=== PATIENT | male | born 1955 | race Caucasian/White ===

== ENCOUNTER 2017-11-16 09:59 | Inpatient (IN) ==
[2017-11-16] MEDS ORDERED: Ipratropium/Albuterol Neb 3 ML IH ONE (10:08)
[2017-11-16] MEDS ORDERED: methylPREDNISolone 125 MG/2 ML VIAL IVP ONE (10:08)
[2017-11-16] MEDS ORDERED: 0.9 % Sodium Chloride 1,000 ML IVC ONE ×2 (10:11→11:53)
--- NOTE | 2017-11-16 10:17 | Emergency Department Note ---
Disposition Clinical Impression: Acute exacerbation of chronic obstructive airways disease, Bronchitis Disposition: Admitted As Inpatient Condition: Good Referrals: NONE,PCP [Primary Care Provider] - Forms: ED Satisfaction Letter Time of Disposition: 11:12 SOB HPI - General Chief Complaint: ED Shortness of Breath/Dyspnea Stated Complaint: TERRI Time Seen by Provider: 11/16/17 10:03 Source: patient, EMS Mode of arrival: ambulatory Limitations: no limitations Nursing Notes Reviewed: Yes Vital Signs Reviewed: Yes - History of Present Illness Patient is a 62-year-old male with a past medical history COPD, CAD, hyperlipidemia and hypertension who smokes 1 ppd of cigarettes that presents to the ED with chief complaint increased dyspnea 5 days. Patient reports that he has had subjective fever and chills for the past 3 days. States he has been coughing up yellow/green sputum. States similar symptoms before with pneumonia and COPD exacerbation which resulted in admission to the hospital. He denies any chest pain, diaphoresis, weakness, nausea, vomiting, abdominal pain, neck pain/stiffness, sore throat or any other symptoms/complaints. Pt states he has not been using his albuterol or Duoneb at home because he is currently out. Pt Subjective Complaint: shortness of breath Onset (ago): day(s) Severity: none Consistency/Duration: gradually worsening Improves with: nothing Worsens with: nothing Known history of: COPD Associated symptoms: Reports: denies other symptoms, fever, cough, wheezing, sputum production. Denies: chest pain, pain with inspiration, orthopnea, lower extremity pain, polyuria, polydipsia, parasthesias, palpitations, hemoptysis, diaphoresis, nausea/vomiting, syncope, abdominal pain, rash, sense of impending doom Treatment prior to arrival: none Cough present: Yes Cough Description: Voluntary, Productive Cough Frequency: Intermittent Sputum production: Yes Sputum Amount: Small Sputum Color: Yellow, Green - Related Data Home oxygen amount: 3 liters (as needed) Previous Rx's Medication Instructions Recorded Albuterol Sulfate [Albuterol 2 puff IH Q4H PRN 30 Days inh 06/13/15 Inhaler] Carvedilol [Coreg] 3.125 mg PO BIDAC #60 tablet 06/13/15 Clopidogrel [Plavix] 75 mg PO DAILY #30 tablet 06/13/15 Ipratropium/Albuterol Neb [Duoneb] 3 ml IH Q4HR 30 Days inhsol 06/13/15 Lisinopril [Zestril] 5 mg PO DAILY #30 tablet 06/13/15 Omeprazole [PriLOSEC] 20 mg PO DAILY #30 capsule 06/13/15 Simvastatin [Zocor] 40 mg PO HS #30 tablet 06/13/15 Promethazine [Phenergan] 25 mg PO Q6HR PRN #15 tablet 02/08/16 HYDROcodone/Acet 5/325 mg [[place] 1 tab PO Q6H PRN #12 tab 04/25/17 5-325 mg] Allergies Allergy/AdvReac Type Severity Reaction Status Date / Time No Known Allergies Allergy Verified 06/09/15 15:57 All systems ED: reviewed and negative except as stated. Review of Systems: As Per HPI Constitutional: Reports: fever, chills. Denies: weakness, weight change Eyes: Denies: eye pain, eye discharge, vision change ENT ED: Denies: ear pain, throat pain, dental pain, congestion, dysphagia Cardiovascular: Denies: chest pain, palpitations, dyspnea on exertion, orthopnea , edema, syncope, paroxysmal nocturnal dyspnea Respiratory: Reports: cough, dyspnea, wheezes, sputum production. Denies: hemoptysis, stridor Gastrointestinal: Denies: abdominal pain, nausea, vomiting, diarrhea, constipation, hematemesis, melena, hematochezia Genitourinary: Denies: urgency, dysuria, frequency Musculoskeletal: Denies: back pain, neck pain Integumentary: Denies: rash Neurological: Denies: headache, weakness Past Medical History - Past Medical History Source: patient Medical history: Reports: arthritis, COPD, coronary artery disease, GERD, hyperlipidemia, hypertension, myocardial infarction Psychiatric history: Reports: no psych history - Social History Smoking Status: Current every day smoker Smokeless Tobacco Status: No Alcohol use: Reports: none Drug use: Reports: none Physical Exam - General Limitations: no limitations General appearance: alert, in no apparent distress - Head Head exam: atraumatic, normocephalic, normal inspection - Eye Eye exam: Present: normal appearance, PERRL, EOMI. Absent: conjunctival injection - ENT ENT exam: normal exam, normal oropharynx, mucous membranes moist, TM's normal bilaterally - Neck Neck exam: Present: normal inspection, full ROM, trachea midline. Absent: tenderness, meningismus, lymphadenopathy - Chest Chest inspection: Present: normal inspection, symmetric chest wall rise - Respiratory Respiratory exam: Present: wheezes, other (decreased breath sounds, prolonged expiratory phase, rhonchi, wheezes.). Absent: respiratory distress, stridor, accessory muscle use, prolonged expiratory phase - Cardiovascular Cardiovascular exam: Present: normal rhythm, tachycardia, normal heart sounds - Abdominal Exam Abdominal exam: Present: soft, Non-Tender, normal bowel sounds - Extremities Exam Extremities exam: Present: normal inspection. Absent: pedal edema - Expanded Lower Extremity Exam Gait: observed and normal - Back Exam Back exam: Present: normal inspection, full ROM. Absent: tenderness - Neurological Exam Neurological exam: Present: alert, oriented X3 - Psychiatric Psychiatric exam: Present: normal affect, normal mood - Skin Skin exam: Present: warm, dry, intact, normal color. Absent: rash, cyanosis, diaphoresis Course Course Narrative: Patient is a 62-year-old male with a past medical history COPD, CAD, hyperlipidemia and hypertension who smokes 1 ppd of cigarettes that presents to the ED via EMS with chief complaint increased dyspnea 5 days. Patient reports that he has had subjective fever and chills for the past 3 days. States he has been coughing up yellow/green sputum. States similar symptoms before with pneumonia and COPD exacerbation which resulted in admission to the hospital. He denies any chest pain, diaphoresis, weakness, nausea, vomiting, abdominal pain, neck pain/stiffness, sore throat or any other symptoms/complaints. Pt states he has not been using his albuterol or Duoneb at home because he is currently out. Patient is a 62-year-old male. Temp 101.2, HR 120 on arrival. Head normocephalic. No signs of external trauma. Eyes normal inspection. PERRLA. Extraocular movements intact. ENT within normal limits. Airway patent. Neck supple, full range motion, nontender. Heart: sinus tach, lungs diffuse exits or wheezing throughout bilateral lung palm. Decreased air movement , right more pronounced than left. No accessory muscle use or retractions. Abdomen soft, nontender. Normal bowel sounds. Back normal inspection, nontender. Extremities within normal limits. No pedal edema. Neuro no focal neurological deficits noted on exam. Plan to obtain EKG, labs and chest x-ray at this time. Breathing treatments, Solu-Medrol, tylenol and IVF ordered. plan to re-eval. EKG sinus tachycardia with occasional PVCs. Nonspecific ST and T-wave changes. EKG reviewed by Dr. Green and I. CXR Minimal bibasilar atelectasis. WBC 19.7 Influenza A and B neg Based on history and examination I have high suspicious for pneumonia versus acute bacterial bronchitis with accompanied COPD exacerbation. Azithromycin and Rocephin given. On re-eval: 11;15 AM: Mild increase in air movement after breathing treatments and an Solu-Medrol. Plan to admit to medicine for bronchitis and COPD exacerbation. Discussed case with the hospitalist he will accept pt. No other request at this time Dr. Wallace jerome had face to face time with pt and agrees with my assessment and tx plan. - Consultations Consultation #1: hospitalist in ED evaluating patient. Time: 12:33 Vital Signs Temperature 101.2 F H 11/16/17 10:01 Pulse Rate 120 11/16/17 10:01 Respiratory Rate 18 11/16/17 10:01 Blood Pressure 153/104 11/16/17 10:01 O2 Sat by Pulse Oximetry 100 11/16/17 10:01 Temperature 99.6 F 11/16/17 11:41 Pulse Rate 120 11/16/17 11:41 Respiratory Rate 18 11/16/17 11:41 Blood Pressure 119/67 11/16/17 11:41 O2 Sat by Pulse Oximetry 97 11/16/17 11:41 Oxygen Delivery Oxygen Delivery Nasal Cannula Shortness of Breath/Dyspnea - Medical Records Medical records reviewed: Yes I reviewed the patient's medical records. - Lab Data Lab results reviewed: Yes I reviewed the patient's lab results. Result diagrams: 11/16/17 10:19 11/16/17 10:19 Lab Results 11/16/17 11/16/17 11/16/17 Range/Units 10:19 10:19 10:19 WBC 19.7 H (4.3-11.1) K/mcL RBC 5.19 (4.19-5.50) M/mcL Hgb 15.3 (12.9-16.9) g/dL Hct 45.8 (37.5-50.1) % MCV 88.2 (83.0-100.0) fL MCH 29.5 (28.0-33.3) pg MCHC 33.4 (31.6-35.5) g/dL RDW 13.2 (11.5-14.5) % Plt Count 285 (140-400) K/mcL MPV 10.3 (9.4-12.4) fL Immature Gran % 0.5 (0-4) % Seg Neutrophils % 86.8 % Lymphocytes % 5.4 % Monocytes % 6.8 % Eosinophils % 0.1 % Basophils % 0.4 % Neutrophils # 17.1 H (1.6-8.9) K/mcL Lymphocytes # 1.1 (0.6-4.6) K/mcL Monocytes # 1.3 (0.0-1.3) K/mcL Eosinophils # 0.0 (0.0-0.6) K/mcL Basophils # 0.1 (0.0-0.2) K/mcL PT (9.4-12.1) Seconds INR Sodium 136 (136-145) mEq/L Potassium 3.9 (3.5-5.1) mEq/L Chloride 103 (98-107) mEq/L Carbon Dioxide 24 (23-29) mEq/L BUN 17 (8-23) mg/dL Creatinine 1.09 (0.70-1.30) mg/dL Est GFR ( Amer) > 60 (> 60) Est GFR (Non-Af Amer) > 60 (> 60) BUN/Creatinine Ratio 16 (6-26) Glucose 112 H (70-105) mg/dL Calculated Osmolality 284 (280-300) Lactic Acid (0.5-2.2) mmol/L Calcium 9.4 (8.6-10.3) mg/dL Troponin I < 0.03 (< 0.04) ng/mL B-Natriuretic Peptide (Less than 100) pg/mL 11/16/17 11/16/17 11/16/17 Range/Units 10:19 10:19 10:19 WBC (4.3-11.1) K/mcL RBC (4.19-5.50) M/mcL Hgb (12.9-16.9) g/dL Hct (37.5-50.1) % MCV (83.0-100.0) fL MCH (28.0-33.3) pg MCHC (31.6-35.5) g/dL RDW (11.5-14.5) % Plt Count (140-400) K/mcL MPV (9.4-12.4) fL Immature Gran % (0-4) % Seg Neutrophils % % Lymphocytes % % Monocytes % % Eosinophils % % Basophils % % Neutrophils # (1.6-8.9) K/mcL Lymphocytes # (0.6-4.6) K/mcL Monocytes # (0.0-1.3) K/mcL Eosinophils # (0.0-0.6) K/mcL Basophils # (0.0-0.2) K/mcL PT 12.5 H (9.4-12.1) Seconds INR 1.2 Sodium (136-145) mEq/L Potassium (3.5-5.1) mEq/L Chloride (98-107) mEq/L Carbon Dioxide (23-29) mEq/L BUN (8-23) mg/dL Creatinine (0.70-1.30) mg/dL Est GFR ( Amer) (> 60) Est GFR (Non-Af Amer) (> 60) BUN/Creatinine Ratio (6-26) Glucose (70-105) mg/dL Calculated Osmolality (280-300) Lactic Acid 1.4 (0.5-2.2) mmol/L Calcium (8.6-10.3) mg/dL Troponin I (< 0.04) ng/mL B-Natriuretic Peptide 72 (Less than 100) pg/mL - Radiology Data Radiology results reviewed: Yes I reviewed the patient's radiology results. - EKG Data EKG attestation: Yes I reviewed and interpreted this EKG. EKG shows normal: Reports: sinus rhythm Rate: Reports: tachycardia Rhythm: Reports: NSR [place]/QRS: Reports: normal Interpretation: Reports: nonspecific ST-T wave changes
[2017-11-16 10:29] LABS: Basophils # 0.1 K/mcL (0.0-0.2); Basophils % 0.4 %; Eosinophils % 0.1 %; Hematocrit 45.8 % (37.5-50.1); Hemoglobin 15.3 g/dL (12.9-16.9); Immature Granulocytes % 0.5 % (0-4); Lymphocytes # 1.1 K/mcL (0.6-4.6); Lymphocytes % 5.4 %; Mean Corpuscular HGB Conc 33.4 g/dL (31.6-35.5); Mean Corpuscular Hemoglobin 29.5 pg (28.0-33.3); Mean Corpuscular Volume 88.2 fL (83.0-100.0); Mean Platelet Volume 10.3 fL (9.4-12.4); Monocytes # 1.3 K/mcL (0.0-1.3); Monocytes % 6.8 %; Neutrophils # 17.1 K/mcL (1.6-8.9); Platelet Count 285 K/mcL (140-400); Red Blood Count 5.19 M/mcL (4.19-5.50); Red Cell Distribution Width 13.2 % (11.5-14.5); Segmented Neutrophils % 86.8 %
[2017-11-16] MEDS ORDERED: cefTRIAXone 1,000 MG in Water for inj. (sterile) 10 ML IVP ONE ×2 (10:41→12:00)
[2017-11-16] MEDS ORDERED: Azithromycin 250 MG TABLET PO ONE (10:41)
[2017-11-16 10:43] LABS: BUN/Creatinine Ratio 16 (6-26); Blood Urea Nitrogen 17 mg/dL (8-23); Calcium 9.4 mg/dL (8.6-10.3); Carbon Dioxide 24 mEq/L (23-29); Chloride 103 mEq/L (98-107); Glucose 112 mg/dL (70-105); Osmolality,Calculated 284 (280-300); Potassium 3.9 mEq/L (3.5-5.1); Sodium 136 mEq/L (136-145); eGFR For African Americans > 60 (> 60); eGFR For Non-African Americans > 60 (> 60)
[2017-11-16 10:49] LABS: INR 1.2; Prothrombin Time 12.5 Seconds (9.4-12.1)
[2017-11-16] MEDS ORDERED: 0.9 % Sodium Chloride 1,000 ML ONE ×2 (11:21→11:54)
[2017-11-16] MEDS ORDERED: 0.9 % Sodium Chloride 1,000 ML IV SCH (11:30)
[2017-11-16] MEDS ORDERED: cefTRIAXone 1,000 MG in Water for inj. (sterile) 20 ML 20 ML IVP ONE (12:00)
--- NOTE | 2017-11-16 12:19 | Event Note ---
Date of Encounter: 11/16/17 Time of Encounter: 12:18 Patient seen and examined with nurse practitioner. Acute COPD exacerbation with acute bronchitis. He has a fever but no obvious consolidation on chest x- ray. Will give Levaquin for acute bronchitis IV steroids and q4h nebulizer treatment. He still smokes one pack a day. Inpatient admission.
[2017-11-16] MEDS ORDERED: Acetaminophen 325 MG TABLET PO PRN (12:40)
[2017-11-16] MEDS ORDERED: Naloxone 0.4 MG/ML INJ IVP PRN (12:40)
[2017-11-16] MEDS ORDERED: Ondansetron 4 MG/2 ML VIAL IVP PRN (12:40)
[2017-11-16] MEDS ORDERED: Albuterol 2.5 MG/3 ML NEBULIZER IH PRN (12:44)
[2017-11-16] MEDS ORDERED: Azithromycin 500 MG in D5% in Water 250 ML IVPB SCH (13:00)
--- NOTE | 2017-11-16 13:01 | Internal Med History&Physical ---
Date of Encounter: 11/16/17 Time of Encounter: 12:58 Assessment and Plan (1) Sepsis Current visit: Yes Status: Acute Patient presents tachycardic, febrile temp of 101.2 elevated white count 19.7 source pneumonia blood cultures have been obtained patient has received 3 L of IV fluid in the ER we will continue with IV fluids Initiated on Rocephin and azithromycin will continue with Levaquin Qualifiers: Sepsis type: sepsis due to unspecified organism Qualified Code(s): A41.9 - Sepsis, unspecified organism (2) Acute bacterial bronchitis Current visit: No Status: Acute Patient has been experiencing cough with yellow sputum subjective fevers wheezing shortness of breath. Chest x-ray is clear this time. He was febrile on presentation and tachycardic. Blood cultures have been drawn patient given Rocephin and azithromycin in the ER. We will give Levaquin and Zosyn Bronchodilators We will recheck chest x-ray in the a.m. possible pneumonia (3) Acute on chronic respiratory failure with hypoxemia Current visit: Yes Status: Acute Patient has exacerbation of COPD as well as acute bacterial bronchitis. We will continue with oxygen titrated to maintain SPO2 greater than 90% (4) Tobacco abuse Current visit: No Status: Chronic Encouraged patient to stop smoking nicotine patch (5) Acute exacerbation of chronic obstructive airways disease Current visit: Yes Status: Acute Patient has been expressing increasing shortness of breath over the past 5 days as well as wheezing cough. Presently has scattered wheezes throughout lung palm we will continue with oxygen titrated to maintain SPO2 over 92% We will place on steroids to taper Bronchodilators (6) DVT prophylaxis Current visit: Yes Status: Acute Lovenox subcutaneous Internal Medicine - H&P: HPI Chief complaint: SOB Admitted From: Emergency Dept Plans for Post Hospital Care: Home History of present illness: Mr. Stubbs is a 62 year old male past medical history of COPD oxygen dependent hyperlipidemia hypertension CAD, LA with stent placement. Patient has been experiencing gradually worsening shortness of breath and wheezing as well as productive cough with yellow sputum over the past 5 days. For the past 3 days he has had fevers chills generalized malaise, he normally smokes about 1 pack a day however he has been too short of breath to smoke. He is to wear oxygen continuously 3 L nasal cannula however he does admit that he he only wears it as needed but over the past few days he has required 24 hours oxygen. He has been out of his albuterol. He presented to the ER with fever and tachycardia he was hypoxic on room air. Lab work did reveal leukocytosis lactate was normal chest x-ray per radiology was negative for any focal consolidation flu swab was negative. He did meet sepsis criteria and fluids were initiated blood cultures obtained is initiated on azithromycin and Rocephin. He also received duo nebs and steroids. According to records he continued to display increased work of breathing although no drop in O2 he was placed on BiPAP. Presently patient does appear to be in some mild respiratory distress with conversational dyspnea and utilization of accessory muscles. He is hemodynamically stable at this time he denies any chest pain. I did speak with patient concerning CODE STATUS he wants to be a DNR CCA DNI I did review his case with Dr. Herrmann who agrees with plan Past Med Surg Social Fam HX - Past Medical History Medical history: arthritis, COPD, coronary artery disease, GERD, hyperlipidemia , hypertension, myocardial infarction Psychiatric history: no psych history - Social History Smoking Status: Current every day smoker Smokeless Tobacco Status: No Alcohol use: none Drug use: none - Family History Father Living Status: Mother Living Status: Hx Family Cardiac Disorders: Yes (mother) Hx Family Respiratory Disorders: Yes (most all) Hx Family Cancer: Yes (most, lung ca) Hx Family GI Disorders: No Hx Family Endocrine Disorder: Yes (grandmother) Hx Family Neuromuscular Disorders: No Hx Family Neurologic Disorders: Yes (aunt) Hx Family HEENT Disorders: No Hx Family Autoimmune Disorders: No Internal Medicine - H&P: Meds Albuterol Sulfate [Albuterol Inhaler] 2 puff IH Q4H PRN 30 Days inh 06/13/15 [ Rx] Carvedilol [Coreg] 3.125 mg PO BIDAC #60 tablet 06/13/15 [Rx] Clopidogrel [Plavix] 75 mg PO DAILY #30 tablet 06/13/15 [Rx] Ipratropium/Albuterol Neb [Duoneb] 3 ml IH Q4HR 30 Days inhsol 06/13/15 [Rx] Lisinopril [Zestril] 5 mg PO DAILY #30 tablet 06/13/15 [Rx] Omeprazole [PriLOSEC] 20 mg PO DAILY #30 capsule 08/04/15 [Rx] Simvastatin [Zocor] 40 mg PO HS #30 tablet 06/13/15 [Rx] Promethazine [Phenergan] 25 mg PO Q6HR PRN #15 tablet 02/08/16 [Rx] HYDROcodone/Acet 5/325 mg [[place] 5-325 mg] 1 tab PO Q6H PRN #12 tab 04/25/17 [Rx ] 3 Allergy/AdvReac Type Severity Reaction Status Date / Time No Known Allergies Allergy Verified 06/09/15 15:57 All Systems PM: A 10-system review of systems was performed and is negative for pertinent findings except as documented above in the HPI. - Constitutional Constitutional: fatigue, no chills, no fever(s), no night sweats - EENT Eyes: no change in vision, no discharge, no pain, no photophobia Nose, mouth and throat: no dysphagia, no nasal discharge, no neck pain, no sore throat - Cardiovascular Cardiovascular ROS IM: dyspnea, dyspnea on exertion, no chest pain, no diaphoresis, no lightheadedness, no palpitations, no syncope - Respiratory Respiratory: cough, wheezing, chest congestion, excessive phlegm production, change in phlegm color, no dyspnea - Gastrointestinal Gastrointestinal: no abdominal pain, no diarrhea, no hematemesis, no hematochezia, no melena, no nausea, no vomiting - Musculoskeletal Musculoskeletal ROS IM: no numbness, no tingling - Neurological Neurological ROS: no confusion, no convulsions, no focal weakness, no numbness, no tingling, no tremor(s) - Hematologic/Lymphatic Hematologic/Lymphatic: no easy bruising - Constitutional Vitals: Temp Pulse Resp BP Pulse Ox 99.6 F 120 24 132/107 97 11/16/17 11:41 11/16/17 11:41 11/16/17 12:41 11/16/17 12:41 11/16/17 11:41 General appearance: Present: mild distress, A&O X 3 - Head Head exam: Present: atraumatic, normocephalic - Eye Eye exam: Present: PERRL, conjuntiva pink, sclera anicteric Pupils: Present: PERRL - Neck Neck exam general surgery: Present: supple, trachea midline. Absent: lymphadenopathy - Respiratory Respiratory exam: Present: wheezes. Absent: accessory muscle use, rales, rhonchi - Cardiovascular Cardiovascular exam: Present: RRR, +S1, +S2. Absent: diastolic murmur, gallop, rubs, systolic murmur - GI/Abdominal GI/Abdominal exam: Present: normal bowel sounds, soft, no peritoneal signs. Absent: distended, tenderness - Extremities Exam Extremities exam: Present: warm, radial pulses palpable and symmetrical. Absent : calf tenderness, cyanotic, pedal edema - Neurological Exam Neurological exam: Present: CN II-XII intact, oriented X3, no focal deficits. Absent: pronater drift, facial droop, speech deficit - Skin Skin exam: Present: dry, intact Internal Med - H&P Results - Labs CBC & Chem 7: 11/16/17 10:19 11/16/17 10:19 - EKG Data EKG shows normal: sinus rhythm - Diagnostic Studies Other Images Additional comments: Chest X-Ray 11/16/17 10:09 IMPRESSION: Minimal bibasilar atelectasis D/ / Jason Trinh MD / Jason Trinh MD Interpreting Provider: Jason Trinh MD
[2017-11-16] MEDS ORDERED: *HR* HYDROcodone/Acet 5/325 mg TABLET PO PRN (13:41)
[2017-11-16 13:54] LABS: ABG Base Excess -6 mEq/L (-2 to 3); ABG HCO3 20 mEq/L (21-27); ABG Oxygen Saturation 95 % (95-98); ABG PCO2 37 mmHg (35-45); ABG PH 7.33 pH Units (7.32-7.45); ABG PO2 78 mmHg (85-104); ABG TCO2 21 mEq/L (20-26); Blood Gas FiO2 0.5 (1-15=lpm or21-100=%)
[2017-11-16] MEDS: Nicotine 14 MG PATCH.TD24 TD SCH (15:17)
[2017-11-16] MEDS: 0.9 % Sodium Chloride 1,000 ML IVC SCH (15:17)
[2017-11-16] MEDS: Ipratropium/Albuterol Neb 3 ML IH SCH ×3 (15:57→23:39)
[2017-11-16] MEDS ORDERED: Benzonatate 100 MG CAPSULE PO PRN (16:04)
[2017-11-16] MEDS: Piperacillin/Tazobactam 3.375 GM/200 ML BAG IVPB SCH (17:11)
[2017-11-16] MEDS: methylPREDNISolone 125 MG/2 ML VIAL IVP SCH (17:11)
[2017-11-17] MEDS: Piperacillin/Tazobactam 3.375 GM/200 ML BAG IVPB SCH ×3 (00:54→18:05)
[2017-11-17] MEDS: methylPREDNISolone 125 MG/2 ML VIAL IVP SCH ×5 (00:54→23:48)
[2017-11-17] MEDS: 0.9 % Sodium Chloride 1,000 ML IVC SCH (00:58)
[2017-11-17] MEDS: Ipratropium/Albuterol Neb 3 ML IH SCH ×6 (03:57→23:37)
[2017-11-17 06:31] LABS: Basophils % 0.2 %; Immature Granulocytes % 1.6 % (0-4); Lymphocytes # 0.8 K/mcL (0.6-4.6); Lymphocytes % 3.9 %; Mean Corpuscular HGB Conc 32.7 g/dL (31.6-35.5); Mean Corpuscular Hemoglobin 29.4 pg (28.0-33.3); Mean Corpuscular Volume 89.9 fL (83.0-100.0); Mean Platelet Volume 10.4 fL (9.4-12.4); Monocytes # 0.5 K/mcL (0.0-1.3); Monocytes % 2.5 %; Neutrophils # 17.7 K/mcL (1.6-8.9); Platelet Count 238 K/mcL (140-400); Red Blood Count 3.67 M/mcL (4.19-5.50); Red Cell Distribution Width 13.5 % (11.5-14.5); Segmented Neutrophils % 91.8 %
[2017-11-17 06:32] LABS: Hemoglobin 10.8 g/dL (12.9-16.9)
[2017-11-17] MEDS: *HR* Enoxaparin 40 MG/0.4 ML SYRINGE SQ SCH (06:33)
[2017-11-17 06:40] LABS: BUN/Creatinine Ratio 18 (6-26); Blood Urea Nitrogen 19 mg/dL (8-23); Calcium 7.9 mg/dL (8.6-10.3); Carbon Dioxide 21 mEq/L (23-29); Chloride 112 mEq/L (98-107); Glucose 150 mg/dL (70-105); Osmolality,Calculated 289 (280-300); Potassium 3.5 mEq/L (3.5-5.1); Sodium 137 mEq/L (136-145); eGFR For African Americans > 60 (> 60); eGFR For Non-African Americans > 60 (> 60)
[2017-11-17] MEDS ORDERED: cefTRIAXone 1,000 MG in Water for inj. (sterile) 20 ML 10 ML IVP SCH (09:00)
[2017-11-17] MEDS: Levofloxacin 750 MG/150 ML 750 MG/150 ML BAG IVPB SCH (09:12)
[2017-11-17] MEDS: Nicotine 14 MG PATCH.TD24 TD SCH (09:13)
--- NOTE | 2017-11-17 10:28 | Electrocardiograph Report ---
[address] [address] Test Date: 2017-11-16 Pat Name: Jose C Stubbs Department: 102 Room: 3B16 Gender: M [employer]contracts Manager: : [id number] Requested By: Keren Mares Order Number: [id number] Reading MD: Bharat Strauss MD Measurements Intervals [place] Rate: 129 P: 67 WI: 120 QRS: 103 QRSD: 103 T: 44 QT: 312 QTc: 388 Interpretive Statements SINUS TACHYCARDIA WITH FREQUENT VENTRICULAR PREMATURE COMPLEXES MARKED RIGHT AXIS DEVIATION Electronically Signed On 11-17-2017 10:27:32 EST by Bharat Strauss MD
--- NOTE | 2017-11-17 18:26 | Internal Med Progress Note ---
Date of Encounter: 11/17/17 Time of Encounter: 11:00 - Assessment and plan (1) COPD exacerbation Current Visit: No Status: Acute Assessment and plan: -We will continue dual nebs and IV Solu-Medrol (2) Acute bacterial bronchitis Current Visit: No Status: Acute Assessment and plan: Will continue IV Levaquin and IV Zosyn (3) DVT prophylaxis Current Visit: Yes Status: Acute Assessment and plan: Continue Lovenox - Subjective Interval history: Patient still with leukocytosis although no longer afebrile after starting treatment for bacterial bronchitis with COPD exacerbation - Constitutional Vitals: Temp Pulse Resp BP Pulse Ox 98.1 F 77 16 113/49 97 11/17/17 14:47 11/17/17 14:47 11/17/17 17:05 11/17/17 14:47 11/17/17 17:05 General appearance: Present: mild distress, A&O X 3 - Respiratory Respiratory exam: Present: CTAB. Absent: accessory muscle use, rales, rhonchi, wheezes - Cardiovascular Cardiovascular exam: Present: RRR, +S1, +S2. Absent: diastolic murmur, gallop, rubs, systolic murmur Internal Medicine: Result - Labs CBC & Chem 7: 11/17/17 06:08 11/17/17 06:08 Labs: Short CBC 11/17/17 Range/Units 06:08 WBC 19.3 H (4.3-11.1) K/mcL Hgb 10.8 L D (12.9-16.9) g/dL Hct 33.0 L (37.5-50.1) % Plt Count 238 (140-400) K/mcL Neutrophils # 17.7 H (1.6-8.9) K/mcL BMP 11/17/17 06:08 Sodium 137 Potassium 3.5 Chloride 112 H Carbon Dioxide 21 L BUN 19 Creatinine 1.03 Glucose 150 H Calcium 7.9 L Cardiac Enzymes 11/16/17 Range/Units 22:14 Troponin I < 0.03 (< 0.04) ng/mL - ABG Interpretation ABG results: ABG ABG pH 7.33 pH Units (7.32-7.45) 11/16/17 13:49 ABG pCO2 37 mmHg (35-45) 11/16/17 13:49 ABG pO2 78 mmHg (85-104) L 11/16/17 13:49 ABG O2 Saturation 95 % (95-98) 11/16/17 13:49 PT/INR, D-dimer PT 12.5 Seconds (9.4-12.1) H 11/16/17 10:19 Consult Discharge Plan - Plan Referrals: NONE,PCP [Primary Care Provider] -
[2017-11-18] MEDS: Piperacillin/Tazobactam 3.375 GM/200 ML BAG IVPB SCH ×3 (01:51→17:04)
[2017-11-18] MEDS: Ipratropium/Albuterol Neb 3 ML IH SCH ×6 (03:32→23:49)
[2017-11-18] MEDS: methylPREDNISolone 125 MG/2 ML VIAL IVP SCH ×3 (05:42→17:05)
[2017-11-18] MEDS: *HR* Enoxaparin 40 MG/0.4 ML SYRINGE SQ SCH ×2 (05:42→21:20)
[2017-11-18] MEDS: Levofloxacin 750 MG/150 ML 750 MG/150 ML BAG IVPB SCH (09:57)
[2017-11-18] MEDS: Nicotine 14 MG PATCH.TD24 TD SCH (09:58)
--- NOTE | 2017-11-18 17:33 | Internal Med Progress Note ---
Date of Encounter: 11/18/17 Time of Encounter: 10:30 - Assessment and plan (1) COPD exacerbation Current Visit: Yes Status: Acute Assessment and plan: continue bronchodilators. We will begin to taper steroids as patient is clinically improving. Moderate risk for complications. (2) Acute bacterial bronchitis Current Visit: Yes Status: Acute Assessment and plan: Cultures have been negative. We will de-escalate antibiotics. Continue Levaquin. Stop Zosyn. (3) Sepsis Current Visit: Yes Status: Resolved Assessment and plan: Likely due to acute bacterial bronchitis. No organism identified. Will complete empiric therapy with Levaquin. Qualifiers: Sepsis type: sepsis due to unspecified organism Qualified Code(s): A41.9 - Sepsis, unspecified organism (4) Acute on chronic respiratory failure with hypoxemia Current Visit: Yes Status: Acute Assessment and plan: Patient with acute on chronic hypoxia. Currently on 2 L O2 supplementation. We will evaluate for home oxygen use during daytime prior to discharge. Patient currently has nocturnal oxygen at home. (5) DVT prophylaxis Current Visit: Yes Status: Acute Assessment and plan: With Lovenox - Subjective Interval history: Patient is awake and alert. Continues to feel better. Denies any fever or chest pain. Shortness of breath is improving. Still describes some wheezing and dyspnea on exertion. Also requiring O2 supplementation during the day. - Constitutional Vitals: Temp Pulse Resp BP Pulse Ox 98.2 F 71 16 121/61 98 11/18/17 16:26 11/18/17 16:26 11/18/17 17:25 11/18/17 16:26 11/18/17 17:25 General appearance: Present: mild distress, A&O X 3, answers questions appropriately - Respiratory Respiratory exam: Present: prolonged expiratory phase, wheezes. Absent: accessory muscle use, rales, rhonchi - Cardiovascular Cardiovascular exam: Present: RRR, +S1, +S2. Absent: diastolic murmur, gallop, rubs, systolic murmur - GI/Abdominal GI/Abdominal exam: Present: normal bowel sounds, soft, no peritoneal signs. Absent: distended, tenderness - Extremities Exam Extremities exam: Present: warm, radial pulses palpable and symmetrical. Absent : calf tenderness, cyanotic, pedal edema - Neurological Exam Neurological exam: Present: alert, oriented X3, no focal deficits. Absent: facial droop, speech deficit Internal Medicine: Result - Labs CBC & Chem 7: 11/17/17 06:08 11/17/17 06:08 - ABG Interpretation ABG results: ABG ABG pH 7.33 pH Units (7.32-7.45) 11/16/17 13:49 ABG pCO2 37 mmHg (35-45) 11/16/17 13:49 ABG pO2 78 mmHg (85-104) L 11/16/17 13:49 ABG O2 Saturation 95 % (95-98) 11/16/17 13:49 PT/INR, D-dimer PT 12.5 Seconds (9.4-12.1) H 11/16/17 10:19 Consult Discharge Plan - Plan Referrals: NONE,PCP [Primary Care Provider] -
[2017-11-19] MEDS: Ipratropium/Albuterol Neb 3 ML IH SCH ×3 (03:46→12:00)
[2017-11-19 07:26] VITALS: BP 129/71
[2017-11-19] MEDS ORDERED: predniSONE 20 MG TABLET PO SCH (09:00)
[2017-11-19] MEDS ORDERED: levoFLOXacin 500 MG TABLET PO SCH (09:00)
[2017-11-19] MEDS: Nicotine 14 MG PATCH.TD24 TD SCH (09:43)
--- NOTE | 2017-11-19 09:55 | Discharge Summary ---
Date of Encounter: 11/19/17 Time of Encounter: 09:45 - Discharge Diagnosis (1) COPD exacerbation Priority: Primary Status: Acute (2) Acute bacterial bronchitis Priority: Secondary Status: Acute (3) Sepsis Priority: Secondary Status: Resolved Qualifiers: Sepsis type: sepsis due to unspecified organism Qualified Code(s): A41.9 - Sepsis, unspecified organism (4) Acute on chronic respiratory failure with hypoxemia Priority: Secondary Status: Acute (5) DVT prophylaxis Priority: Secondary Status: Acute - Discharge Medications Prescriptions: Albuterol Sulfate [Albuterol Inhaler] 2 puff IH Q4HR PRN #1 hfa.aer.ad PRN Reason: Shortness Of Breath Acetaminophen [Tylenol] 650 mg PO Q6HR PRN #30 tablet PRN Reason: Mild Pain (1-3) Albuterol Neb [Proventil Neb] 2.5 mg IH Q4H PRN #30 inhsol PRN Reason: Shortness Of Breath/Wheezing Budesonide/Formoterol 80/4.5 [Symbicort 80/4.5] 2 puff IH BID #1 hfa.aer.ad Carvedilol [Coreg] 3.125 mg PO BIDAC #60 tablet Clopidogrel [Plavix] 75 mg PO DAILY #30 tablet levoFLOXacin [Levaquin] 500 mg PO DAILY #5 tablet Lisinopril [Zestril] 5 mg PO DAILY #30 tablet predniSONE [PredniSONE] 10 mg PO DAILY 12 Days tablet Simvastatin [Zocor] 40 mg PO HS #30 tablet Home Medications: Lisinopril [Zestril] 5 mg PO DAILY #30 tablet 06/13/15 [Rx] Acetaminophen [Tylenol] 650 mg PO Q6HR PRN #30 tablet 11/19/17 [Rx] Albuterol Neb [Proventil Neb] 2.5 mg IH Q4H PRN #30 inhsol 11/19/17 [Rx] Albuterol Sulfate [Albuterol Inhaler] 2 puff IH Q4HR PRN #1 hfa.aer.ad 11/19/17 [Rx] Budesonide/Formoterol 80/4.5 [Symbicort 80/4.5] 2 puff IH BID #1 hfa.aer.ad 08/27 [Rx] Carvedilol [Coreg] 3.125 mg PO BIDAC #60 tablet 11/19/17 [Rx] Clopidogrel [Plavix] 75 mg PO DAILY #30 tablet 11/19/17 [Rx] Lisinopril [Zestril] 5 mg PO DAILY #30 tablet 11/19/17 [Rx] Simvastatin [Zocor] 40 mg PO HS #30 tablet 11/19/17 [Rx] levoFLOXacin [Levaquin] 500 mg PO DAILY #5 tablet 11/19/17 [Rx] predniSONE [PredniSONE] 10 mg PO DAILY 12 Days tablet 11/19/17 [Rx] Allergies/Adverse Reactions: 3 Allergy/AdvReac Type Severity Reaction Status Date / Time No Known Allergies Allergy Verified 06/09/15 15:57 Date of admission: 11/16/17 12:40 Primary care physician: PCP NONE Consults: 11/16/17 14:32 Consult to Toe Former [CONS] Routine Reason for SW Consult: oxygen use Discharging clinician: Giovanni Song Anticipated date of discharge: 11/19/17 - Patient Status Disposition: Home, Self-Care Condition: Good Functional capacity at discharge: independent ambulation Overall status at discharge: patient is progressing back to baseline - Discharge Instructions Instructions: Acute Respiratory Distress Syndrome (DC), Chronic Obstructive Pulmonary Disease (DC) Follow Up With: Naun Zapata MD [Partnered Physician] - (in 1-2 weeks for COPD) NONE,PCP [Primary Care Provider] - (in 1-2 weeks for follow up) - Diet and Activity Activity: as per physical therapy, wear oxygen at all times Diet: low fat, low cholesterol, low salt diet Hospital course: Mr. Stubbs is a 62 year old male sent with a history of COPD, tobacco abuse was hospitalized here with sepsis related to acute bronchitis. He had presented to the ER with complaints of shortness of breath. He had fever and an elevated WBC count. We will start her on IV antibiotics along with intravenous steroids and bronchodilators and O2 supplementation. His symptoms have slowly improved with this treatment regimen. Presently he is breathing well on room air. He was evaluated for home oxygen but did not qualify for it. She is clinically stable for discharge home. He will be discharged on oral antibiotics and steroid taper to complete treatment for COPD. He will also be discharged with prescriptions for nebulizers and inhalers along with prescriptions for his usual medications that he normally takes. - Time Spent with Patient Total time spent providing and/or coordinating discharge services: Greater than 30 minutes (35 min) - Constitutional Vitals: Temp Pulse Resp BP Pulse Ox 97.6 F 69 16 129/71 90 11/19/17 07:24 11/19/17 07:24 11/19/17 07:24 11/19/17 07:24 11/19/17 07:24 General appearance: Present: cooperative, mild distress, A&O X 3, answers questions appropriately - Respiratory Respiratory exam: Present: prolonged expiratory phase. Absent: accessory muscle use, rales, rhonchi, wheezes - Cardiovascular Cardiovascular exam: Present: RRR, +S1, +S2. Absent: diastolic murmur, gallop, rubs, systolic murmur - GI/Abdominal GI/Abdominal exam: Present: normal bowel sounds, soft, no peritoneal signs. Absent: distended, tenderness - Extremities Exam Extremities exam: Present: warm, radial pulses palpable and symmetrical. Absent : calf tenderness, cyanotic, pedal edema - Neurological Exam Neurological exam: Present: CN II-XII intact, oriented X3, no focal deficits. Absent: facial droop, speech deficit
== END 2017-11-19 14:15 | disposition home or self-care (01) | DRG 871 ==
LOC: 3ANU 09:59 → EMEROO 09:59 → 3BNU 12:31 → SUATTDRO 12:40 → 3BNU 12:49
PROVIDERS: ADMIT Hospitalist; ATTEND Internal Medicine

== ENCOUNTER 2018-05-05 19:44 | Inpatient (IN) ==
--- NOTE | 2018-05-05 20:02 | Emergency Department Note ---
Disposition Clinical Impression: COPD exacerbation, Tobacco abuse, History of coronary artery disease, History of hypertension, History of hypercholesterolemia, On anticoagulant therapy, Smoker Disposition: Admitted As Inpatient Referrals: Quinton Avila MD [Primary Care Provider] - Forms: ED Satisfaction Letter General Adult HPI - General Chief complaint: ED Shortness of Breath/Dyspnea Stated complaint: TERRI Time Seen by Provider: 05/05/18 19:56 Source: patient Limitations: no limitations - History of Present Illness HPI Narrative: 62-year-old male with a history of COPD reports emergency department complaining of shortness of breath and wheezing he has been coughing and states he has had a fever. No coughing of blood leg swelling or pain no syncope. No previous history of DVT. The patient reports he is anticoagulated on Xarelto secondary to coronary artery disease there is no history of bleeding. No trauma. No abdominal pain vomiting or diarrhea and no acute back pain or syncope. The patient denies any history of aneurysms. The patient does not describe chest pain. There is no history of confusion or any difficulty moving the arms or legs independently. The patient states he is "supposed to wear oxygen" but does not. Pain Scale: 0 - Related Data Home Medications Medication Instructions Recorded Confirmed No Known Home Drugs 05/05/18 05/05/18 Allergies Allergy/AdvReac Type Severity Reaction Status Date / Time No Known Allergies Allergy Verified 05/05/18 19:45 All systems ED: reviewed and negative except as stated. Past Medical History - Past Medical History Medical history: Reports: arthritis, COPD, coronary artery disease, GERD, hyperlipidemia, hypertension, myocardial infarction Psychiatric history: Reports: no psych history - Social History Smoking Status: Current every day smoker Smokeless Tobacco Status: No Alcohol use: Reports: none Drug use: Reports: none Physical Exam - General Limitations: no limitations General appearance: alert, in no apparent distress - Head Head exam: atraumatic, normocephalic, normal inspection - Eye Eye exam: Present: normal appearance - ENT ENT exam: normal exam, normal oropharynx, mucous membranes moist, TM's normal bilaterally, normal external ear exam - Neck Neck exam: Present: normal inspection, full ROM, trachea midline - Chest Chest inspection: Present: symmetric chest wall rise. Absent: tenderness - Respiratory Respiratory exam: Present: wheezes, prolonged expiratory phase. Absent: respiratory distress, stridor, accessory muscle use - Cardiovascular Cardiovascular exam: Present: regular rate, normal rhythm, normal heart sounds - Abdominal Exam Abdominal exam: Present: soft, Non-Tender, normal bowel sounds. Absent: tenderness, distention, guarding, rebound, rigidity, pulsatile mass - Extremities Exam Extremities exam: Present: normal inspection, full ROM, normal capillary refill. Absent: tenderness, pedal edema, joint swelling, calf tenderness - Expanded Lower Extremity Exam Lower leg exam: Absent: Homans' sign Neurovascular/Tendon exam: Present: normal capillary refill. Absent: motor deficit, sensory deficit, tendon deficit, extremity cold to touch, pallor - Back Exam Back exam: Present: normal inspection, full ROM. Absent: tenderness, CVA tenderness (R), CVA tenderness (L), vertebral tenderness - Neurological Exam Neurological exam: Present: alert, oriented X3, CN II-XII intact. Absent: motor sensory deficit - Psychiatric Psychiatric exam: Present: normal affect, normal mood - Skin Skin exam: Present: warm, dry, intact, normal color. Absent: rash, cyanosis, diaphoresis, erythema, pallor, mottled Course Vital Signs Temperature 98.1 F 05/05/18 19:45 Pulse Rate 71 05/05/18 19:45 Respiratory Rate 24 05/05/18 19:45 Blood Pressure 175/97 05/05/18 19:45 O2 Sat by Pulse Oximetry 93 05/05/18 19:45 Temperature 98.1 F 05/05/18 19:45 Pulse Rate 102 05/05/18 22:15 Respiratory Rate 19 05/05/18 22:30 Blood Pressure 112/77 05/05/18 22:30 O2 Sat by Pulse Oximetry 97 05/05/18 22:30 Oxygen Delivery Oxygen Delivery Nasal Cannula Medical Decision Making - [facility] Narrative Medical decision making narrative: The patient was given multiple nebulizer treatments in the ED as well as Solu- Medrol. He was observed in the emergency department and had persistent wheezing with poor air flow throughout all lung palm. His family members report that they do not think he can go home, they feel he is too ill. The patient reports he is still significantly short of breath after treatment. Based on what appears to be failed outpatient therapy, persistent wheezing after 3 nebulizer treatments, poor peak flow, elderly state, continual smoking, known COPD, persistent tachypnea, a history of coronary artery disease and other comorbidities, I thought it would be appropriate to admit the patient to the hospital. Oxygen was supplied in the emergency department. I consulted with the hospitalist on-call who has accepted the patient to their care. - Lab Data Lab results reviewed: Yes I reviewed the patient's lab results. Result diagrams: 05/05/18 20:25 05/05/18 20:25 Lab Results 05/05/18 05/05/18 05/05/18 Range/Units 20:25 20:25 20:25 WBC 9.1 (4.3-11.1) K/mcL RBC 5.14 (4.19-5.50) M/mcL Hgb 15.1 (12.9-16.9) g/dL Hct 44.9 (37.5-50.1) % MCV 87.4 (83.0-100.0) fL MCH 29.4 (28.0-33.3) pg MCHC 33.6 (31.6-35.5) g/dL RDW 13.3 (11.5-14.5) % Plt Count 325 (140-400) K/mcL MPV 9.8 (9.4-12.4) fL Immature Gran % 0.3 (0-4) % Seg Neutrophils % 66.8 % Lymphocytes % 22.0 % Monocytes % 6.8 % Eosinophils % 3.4 % Basophils % 0.7 % Neutrophils # 6.1 (1.6-8.9) K/mcL Lymphocytes # 2.0 (0.6-4.6) K/mcL Monocytes # 0.6 (0.0-1.3) K/mcL Eosinophils # 0.3 (0.0-0.6) K/mcL Basophils # 0.1 (0.0-0.2) K/mcL PT 11.2 (9.4-12.1) Seconds INR 1.0 APTT 32.0 (26.0-36.0) Seconds Sodium 137 (136-145) mEq/L Potassium 4.3 (3.5-5.1) mEq/L Chloride 106 (98-107) mEq/L Carbon Dioxide 25 (23-29) mEq/L BUN 10 (8-23) mg/dL Creatinine 0.94 (0.70-1.30) mg/dL Est GFR ( Amer) > 60 (> 60) Est GFR (Non-Af Amer) > 60 (> 60) BUN/Creatinine Ratio 11 (6-26) Glucose 95 (70-105) mg/dL Calculated Osmolality 283 (280-300) Lactic Acid (0.5-2.2) mmol/L Calcium 9.3 (8.6-10.3) mg/dL Total Bilirubin 0.3 (0.3-1.0) mg/dL Direct Bilirubin 0.1 (0.0-0.2) mg/dL Indirect Bilirubin 0.2 (0.0-1.2) mg/dL AST 19 (13-39) Units/L ALT 11 (7-52) Units/L Alkaline Phosphatase 76 (34-104) Units/L Troponin I < 0.03 (< 0.04) ng/mL B-Natriuretic Peptide (Less than 100) pg/mL Serum Total Protein 7.0 (6.4-8.9) g/dL Albumin 4.0 (3.5-5.7) g/dL Globulin 3.0 (2.4-3.5) g/dL Albumin/Globulin Ratio 1.3 (1.1-2.2) 05/05/18 05/05/18 Range/Units 20:25 20:56 WBC (4.3-11.1) K/mcL RBC (4.19-5.50) M/mcL Hgb (12.9-16.9) g/dL Hct (37.5-50.1) % MCV (83.0-100.0) fL MCH (28.0-33.3) pg MCHC (31.6-35.5) g/dL RDW (11.5-14.5) % Plt Count (140-400) K/mcL MPV (9.4-12.4) fL Immature Gran % (0-4) % Seg Neutrophils % % Lymphocytes % % Monocytes % % Eosinophils % % Basophils % % Neutrophils # (1.6-8.9) K/mcL Lymphocytes # (0.6-4.6) K/mcL Monocytes # (0.0-1.3) K/mcL Eosinophils # (0.0-0.6) K/mcL Basophils # (0.0-0.2) K/mcL PT (9.4-12.1) Seconds INR APTT (26.0-36.0) Seconds Sodium (136-145) mEq/L Potassium (3.5-5.1) mEq/L Chloride (98-107) mEq/L Carbon Dioxide (23-29) mEq/L BUN (8-23) mg/dL Creatinine (0.70-1.30) mg/dL Est GFR ( Amer) (> 60) Est GFR (Non-Af Amer) (> 60) BUN/Creatinine Ratio (6-26) Glucose (70-105) mg/dL Calculated Osmolality (280-300) Lactic Acid 0.8 (0.5-2.2) mmol/L Calcium (8.6-10.3) mg/dL Total Bilirubin (0.3-1.0) mg/dL Direct Bilirubin (0.0-0.2) mg/dL Indirect Bilirubin (0.0-1.2) mg/dL AST (13-39) Units/L ALT (7-52) Units/L Alkaline Phosphatase (34-104) Units/L Troponin I (< 0.04) ng/mL B-Natriuretic Peptide 47 (Less than 100) pg/mL Serum Total Protein (6.4-8.9) g/dL Albumin (3.5-5.7) g/dL Globulin (2.4-3.5) g/dL Albumin/Globulin Ratio (1.1-2.2) - Radiology Data Radiology results reviewed: Yes I reviewed the patient's radiology results.
[2018-05-05] MEDS ORDERED: Ipratropium/Albuterol Neb 3 ML IH ONE ×3 (20:14→22:20)
[2018-05-05] MEDS ORDERED: methylPREDNISolone 125 MG/2 ML VIAL IVP ONE (20:15)
[2018-05-05 20:44] LABS: Basophils # 0.1 K/mcL (0.0-0.2); Basophils % 0.7 %; Eosinophils # 0.3 K/mcL (0.0-0.6); Eosinophils % 3.4 %; Hematocrit 44.9 % (37.5-50.1); Hemoglobin 15.1 g/dL (12.9-16.9); Immature Granulocytes % 0.3 % (0-4); Mean Corpuscular HGB Conc 33.6 g/dL (31.6-35.5); Mean Corpuscular Hemoglobin 29.4 pg (28.0-33.3); Mean Corpuscular Volume 87.4 fL (83.0-100.0); Mean Platelet Volume 9.8 fL (9.4-12.4); Monocytes # 0.6 K/mcL (0.0-1.3); Monocytes % 6.8 %; Neutrophils # 6.1 K/mcL (1.6-8.9); Platelet Count 325 K/mcL (140-400); Red Blood Count 5.14 M/mcL (4.19-5.50); Red Cell Distribution Width 13.3 % (11.5-14.5); Segmented Neutrophils % 66.8 %
[2018-05-05 20:51] LABS: Prothrombin Time 11.2 Seconds (9.4-12.1)
[2018-05-05 21:15] LABS: Alanine Aminotransferase 11 Units/L (7-52); Albumin/Globulin Ratio 1.3 (1.1-2.2); Alkaline Phosphatase 76 Units/L (34-104); Aspartate Amino Transferase 19 Units/L (13-39); BUN/Creatinine Ratio 11 (6-26); Bilirubin,Direct 0.1 mg/dL (0.0-0.2); Bilirubin,Indirect 0.2 mg/dL (0.0-1.2); Bilirubin,Total 0.3 mg/dL (0.3-1.0); Blood Urea Nitrogen 10 mg/dL (8-23); Calcium 9.3 mg/dL (8.6-10.3); Carbon Dioxide 25 mEq/L (23-29); Chloride 106 mEq/L (98-107); Glucose 95 mg/dL (70-105); Osmolality,Calculated 283 (280-300); Potassium 4.3 mEq/L (3.5-5.1); Sodium 137 mEq/L (136-145); Troponin I < 0.03 ng/mL (< 0.04); eGFR For African Americans > 60 (> 60); eGFR For Non-African Americans > 60 (> 60)
--- NOTE | 2018-05-05 23:40 | Internal Med History&Physical ---
<Maria Isabel Avelar - Last Filed: 05/06/18 05:32> Date of Encounter: 05/06/18 Time of Encounter: 23:34 Internal Medicine - H&P: HPI Chief complaint: SOB Admitted From: Home Plans for Post Hospital Care: Home History of present illness: Mr. Stubbs is a 62 year old male with a past medical history of COPD 3L at night, hypertension, and CAD on Xarelto who presented to the ED with SOB. Patient states that one week ago he began having shortness of breath with associated congestion, cough with yellow productive sputum, rhinorrhea and subjective fevers. He has had some vomiting but typically after coughing denies nausea, abdominal pain, diarrhea. Patient states that he thought he was getting better than he got worse. Denies hemoptysis, chest pain, hematemesis. Patient's most recent hospitalization was in November for acute bronchitis and sepsis. Upon arrival to the ED patient was to With a respiratory rate of 24 with an oxygen saturation of 93% on RA and hypertensive 175/97. He was placed on nasal cannula 3 L and was given 3 DuoNeb treatments and Solu-Medrol and was still feeling short of breath but his respiratory rate and HTN improved. Chest x-ray showed no acute process. CBC and BMP were within normal limits. Other significant labs: BNP= 47, Troponin < 0.03. Patient is admitted to the floor for COPD exacerbation. Past Med Surg Social Fam HX - Past Medical History Medical history: arthritis, COPD, coronary artery disease, GERD, hyperlipidemia , hypertension, myocardial infarction Psychiatric history: no psych history - Past Surgical History Additional surgical history: Heart Cath, Cardiac Stent - Social History Smoking Status: Current every day smoker Smokeless Tobacco Status: No Alcohol use: none Drug use: none - Family History Father Living Status: Mother Living Status: Hx Family Cardiac Disorders: Yes (mother) Hx Family Respiratory Disorders: Yes (most all) Hx Family Cancer: Yes (most, lung ca) Hx Family GI Disorders: No Hx Family Endocrine Disorder: Yes (grandmother) Hx Family Neuromuscular Disorders: No Hx Family Neurologic Disorders: Yes (aunt) Hx Family HEENT Disorders: No Hx Family Autoimmune Disorders: No Internal Medicine - H&P: Meds No Known Home Drugs 05/05/18 [History] 3 Allergy/AdvReac Type Severity Reaction Status Date / Time No Known Allergies Allergy Verified 05/05/18 19:45 All Systems PM: A 10-system review of systems was performed and is negative for pertinent findings except as documented above in the HPI. - Constitutional Vitals: Temp Pulse Resp BP Pulse Ox 98.1 F 105 16 122/84 95 05/05/18 19:45 05/05/18 23:16 05/05/18 23:16 05/05/18 23:16 05/05/18 23:16 Exam: Constitutional: Alert, in no acute distress Head: Normocephalic, atraumatic, no sinus tenderness Heart: Normal, regular rate and rhythm, no murmurs Lungs: diffuse wheezing, decrase air movement, mild respiratory distress on 3L NC Abdomen: Soft, nondistended, nontender, no guarding or rigidity. Extremities: No edema, No clubbing, radial pulse +2/4, capillary refill <2sec. Skin: Skin warm and dry, no lesions, no rashes, no jaundice Neurologic: Cranial nerves II through XII grossly intact, strength 5/5 in all extremitites Psych: Cooperative with exam, good eye contact, cognitive function intact, speech clear, thought process logical, and goal directed Internal Med - H&P Results - Labs CBC & Chem 7: 05/05/18 20:25 05/05/18 20:25 - Assessment and plan (1) COPD exacerbation Current Visit: Yes Status: Acute Assessment and plan: COPD exacerbation most likely caused by URI. Patient also does not take any medications at home and is still smoking 1.5ppd. Will repeat CXR to assure pneumonia has not developed. Plan: - oxygen support, NS wean as tolerated - DuoNebs Q2H prn and Q4H francia - Solu-Medrol 40mg Q8H - continuous pulse ox - repeat CXR in the AM for signs of pneumonia -antibiotics: Azithromycin - tessalon for coughing (2) Hypertension Current Visit: No Status: Chronic Assessment and plan: Currently BP wnl. Hydralzine placed prn. Qualifiers: Hypertension type: essential hypertension Qualified Code(s): I10 - Essential (primary) hypertension (3) DVT prophylaxis Current Visit: No Status: Acute Assessment and plan: Heparin SQ - Time Spent With Patient Total time spent is greater than 50% in coordination of care (as documented) at patient's floor/unit and/or counseling patient: <Dawoud,Birtany Z - Last Filed: 05/06/18 07:05> Date of Encounter: 05/05/18 Internal Medicine - H&P: HPI History of present illness: Mr. Stubbs is a 62 year old male All Systems PM: A 10-system review of systems was performed and is negative for pertinent findings except as documented above in the HPI. - Constitutional Vitals: Temp Pulse Resp BP Pulse Ox 97.6 F 73 14 123/64 97 05/06/18 07:04 05/06/18 07:04 05/06/18 07:04 05/06/18 07:04 05/06/18 07:04 Internal Med - H&P Results - Labs CBC & Chem 7: 05/05/18 20:25 05/05/18 20:25 - Assessment and plan (1) COPD exacerbation Current Visit: Yes Status: Acute (2) Hypertension Current Visit: No Status: Chronic Qualifiers: Hypertension type: essential hypertension Qualified Code(s): I10 - Essential (primary) hypertension (3) DVT prophylaxis Current Visit: No Status: Acute - Time Spent With Patient Total time spent is greater than 50% in coordination of care (as documented) at patient's floor/unit and/or counseling patient:
[2018-05-06] MEDS ORDERED: Naloxone 0.4 MG/ML INJ IVP PRN (01:53)
[2018-05-06] MEDS ORDERED: Ipratropium/Albuterol Neb 3 ML IH PRN (01:54)
[2018-05-06] MEDS: Ipratropium/Albuterol Neb 3 ML IH SCH ×6 (03:43→23:00)
[2018-05-06] MEDS ORDERED: Azithromycin 250 MG TABLET PO ONE (05:30)
[2018-05-06] MEDS ORDERED: Benzonatate 100 MG CAPSULE PO PRN (05:30)
[2018-05-06] MEDS ORDERED: Ondansetron 4 MG/2 ML VIAL IVP PRN (05:39)
[2018-05-06] MEDS: *HR* Heparin 5,000 UNIT/ML VIAL SQ SCH ×2 (06:27→16:31)
[2018-05-06 07:10] LABS: Basophils % 0.1 %; Eosinophils % 0.1 %; Hematocrit 40.6 % (37.5-50.1); Immature Granulocytes % 0.4 % (0-4); Lymphocytes # 0.7 K/mcL (0.6-4.6); Lymphocytes % 7.4 %; Mean Corpuscular HGB Conc 32.8 g/dL (31.6-35.5); Mean Corpuscular Hemoglobin 28.5 pg (28.0-33.3); Mean Corpuscular Volume 86.9 fL (83.0-100.0); Mean Platelet Volume 9.6 fL (9.4-12.4); Monocytes % 0.4 %; Neutrophils # 8.6 K/mcL (1.6-8.9); Platelet Count 314 K/mcL (140-400); Red Blood Count 4.67 M/mcL (4.19-5.50); Red Cell Distribution Width 13.5 % (11.5-14.5); Segmented Neutrophils % 91.6 %
[2018-05-06 07:17] LABS: Hemoglobin 13.3 g/dL (12.9-16.9)
[2018-05-06 07:37] LABS: BUN/Creatinine Ratio 11 (6-26); Blood Urea Nitrogen 11 mg/dL (8-23); Calcium 9.3 mg/dL (8.6-10.3); Carbon Dioxide 23 mEq/L (23-29); Chloride 102 mEq/L (98-107); Glucose 189 mg/dL (70-105); Magnesium 1.9 mg/dL (1.6-2.6); Osmolality,Calculated 286 (280-300); Phosphorous 3.1 mg/dL (2.7-4.5); Potassium 3.8 mEq/L (3.5-5.1); Sodium 136 mEq/L (136-145); eGFR For African Americans > 60 (> 60); eGFR For Non-African Americans > 60 (> 60)
[2018-05-06] MEDS: MethylPREDNISolone 40 MG/ML VIAL IVP SCH ×2 (09:21→16:31)
--- NOTE | 2018-05-06 12:24 | Electrocardiograph Report ---
[address] [address] Test Date: 2018-05-05 Pat Name: Jose C Stubbs Department: 102 Room: 3B23 Gender: M Osteopathic Physician: [place] : 1955 Requested By: Aaron Seth Order Number: [id number] Reading MD: Titus Serrano Measurements Intervals [place] Rate: 85 P: 72 OK: 162 QRS: 97 QRSD: 106 T: 64 QT: 348 QTc: 390 Interpretive Statements SINUS RHYTHM BORDERLINE RIGHT AXIS DEVIATION Electronically Signed On 05-06-2018 12:22:13 EDT by Titus Serrano
--- NOTE | 2018-05-06 16:00 | Internal Med Progress Note ---
Date of Encounter: 05/06/18 Time of Encounter: 15:58 - Assessment and plan (1) COPD exacerbation Current Visit: Yes Status: Acute Assessment and plan: has known COPD with chronic respiratory failure (wears oxygen 3 L at home). Presented with worsening of progressive shortness of breath; COPD exacerbation most likely caused by URI. Symptomatic with diffuse wheezing and persistent SOB on exam. CXR nonacute. Continue azithromycin, IV steroids and DuoNeb's. Smoking cessation advised. Refused respiratory PCR. (2) Hypertension Current Visit: No Status: Chronic Assessment and plan: BP elevated on arrival. No official diagnosis of hypertension. BP normalized without intervention. Elevation of BP likely secondary to acute COPD exacerbation/SOB. Continue to monitor BP Qualifiers: Hypertension type: essential hypertension Qualified Code(s): I10 - Essential (primary) hypertension (3) DVT prophylaxis Current Visit: No Status: Acute Assessment and plan: Heparin - Time Spent With Patient Total time spent is greater than 50% in coordination of care (as documented) at patient's floor/unit and/or counseling patient: - Subjective Interval history: Seen and examined at bedside. Patient is new to me, information obtained from chart review and patient report. Says he feels significantly better from arrival they still experiencing shortness of breath and wheezing. Has productive cough. No fevers or chills. He is refusing rested for a PCR. - Constitutional Vitals: Temp Pulse Resp BP Pulse Ox 98.5 F 109 18 143/67 92 05/06/18 15:29 05/06/18 15:29 05/06/18 15:33 05/06/18 15:29 05/06/18 15:33 General appearance: Present: cachectic, mild distress, A&O X 3 - Head Head exam: Present: atraumatic, normocephalic - Eye Eye exam: Present: PERRL, conjuntiva pink, sclera anicteric Pupils: Present: PERRL - Neck Neck exam general surgery: Present: supple, trachea midline. Absent: lymphadenopathy - Respiratory Respiratory exam: Present: CTAB, respiratory distress (Appears mildly dyspneic) , wheezes. Absent: accessory muscle use, rales, rhonchi - Cardiovascular Cardiovascular exam: Present: RRR, +S1, +S2. Absent: diastolic murmur, gallop, rubs, systolic murmur - GI/Abdominal GI/Abdominal exam: Present: normal bowel sounds, soft, no peritoneal signs. Absent: distended, tenderness - Extremities Exam Extremities exam: Present: warm, radial pulses palpable and symmetrical. Absent : calf tenderness, cyanotic, pedal edema - Neurological Exam Neurological exam: Present: CN II-XII intact, oriented X3, no focal deficits. Absent: pronater drift, facial droop, speech deficit - Skin Skin exam: Present: dry, intact Internal Medicine: Result - Labs CBC & Chem 7: 05/06/18 06:51 05/06/18 06:51 Labs: Short CBC 05/06/18 Range/Units 06:51 WBC 9.4 (4.3-11.1) K/mcL Hgb 13.3 D (12.9-16.9) g/dL Hct 40.6 (37.5-50.1) % Plt Count 314 (140-400) K/mcL Neutrophils # 8.6 (1.6-8.9) K/mcL BMP 05/06/18 06:51 Sodium 136 Potassium 3.8 Chloride 102 Carbon Dioxide 23 BUN 11 Creatinine 0.97 Glucose 189 H Calcium 9.3 - ABG Interpretation ABG results: PT/INR, D-dimer PT 11.2 Seconds (9.4-12.1) 05/05/18 20:25 - Impressions Impressions Chest X-Ray 05/06/18 06:30 IMPRESSION: Stable exam without evidence for acute cardiopulmonary process. D/ / Leon Valencia MD / Leon Valencia MD Interpreting Provider: Leon Valencia MD Consult Discharge Plan - Plan Referrals: Quinton Avila MD [Primary Care Provider] - (Follow up appointment with PCP has been requested. )
[2018-05-06] MEDS: Ibuprofen 400 MG TABLET PO PRN (16:30)
[2018-05-06] MEDS: GuaiFENesin/Codeine Oral Soln 5 ML UDC PO PRN (16:41)
[2018-05-06] MEDS ORDERED: GuaiFENesin/Codeine Oral Soln 5 ML UDC PO SCH (20:00)
[2018-05-07] MEDS: MethylPREDNISolone 40 MG/ML VIAL IVP SCH ×3 (00:21→17:12)
[2018-05-07] MEDS: Ipratropium/Albuterol Neb 3 ML IH SCH ×6 (04:18→23:10)
[2018-05-07 05:08] LABS: Hematocrit 36.8 % (37.5-50.1); Hemoglobin 12.2 g/dL (12.9-16.9); Mean Corpuscular HGB Conc 33.2 g/dL (31.6-35.5); Mean Corpuscular Hemoglobin 29.1 pg (28.0-33.3); Mean Corpuscular Volume 87.8 fL (83.0-100.0); Mean Platelet Volume 10.1 fL (9.4-12.4); Platelet Count 326 K/mcL (140-400); Red Blood Count 4.19 M/mcL (4.19-5.50); Red Cell Distribution Width 13.5 % (11.5-14.5)
[2018-05-07 05:27] LABS: BUN/Creatinine Ratio 17 (6-26); Blood Urea Nitrogen 17 mg/dL (8-23); Calcium 9.2 mg/dL (8.6-10.3); Carbon Dioxide 25 mEq/L (23-29); Chloride 105 mEq/L (98-107); Glucose 151 mg/dL (70-105); Osmolality,Calculated 286 (280-300); Potassium 4.1 mEq/L (3.5-5.1); Sodium 136 mEq/L (136-145); eGFR For African Americans > 60 (> 60); eGFR For Non-African Americans > 60 (> 60)
[2018-05-07] MEDS: *HR* Heparin 5,000 UNIT/ML VIAL SQ SCH ×2 (06:10→17:12)
[2018-05-07] MEDS: Azithromycin 250 MG TABLET PO SCH (08:39)
[2018-05-07] MEDS ORDERED: Isovue-370 500 ML INFUS..BTL IV ONE (09:36)
--- NOTE | 2018-05-07 11:24 | Internal Med Progress Note ---
Date of Encounter: 05/07/18 Time of Encounter: 11:20 - Assessment and plan (1) COPD exacerbation Current Visit: Yes Status: Acute (2) Hypertension Current Visit: No Status: Chronic Qualifiers: Hypertension type: essential hypertension Qualified Code(s): I10 - Essential (primary) hypertension (3) DVT prophylaxis Current Visit: No Status: Acute - Time Spent With Patient Total time spent is greater than 50% in coordination of care (as documented) at patient's floor/unit and/or counseling patient: - Subjective Interval history: Seen and examined at bedside. Patient is new to me, information obtained from chart review and patient report. Says he feels significantly better from arrival they still experiencing shortness of breath and wheezing. Has productive cough. No fevers or chills. He is refusing rested for a PCR. - Constitutional Vitals: Temp Pulse Resp BP Pulse Ox 97.6 F 104 20 114/72 95 05/07/18 02:56 05/07/18 08:00 05/07/18 11:00 05/07/18 08:00 05/07/18 11:00 General appearance: Present: cachectic, mild distress, A&O X 3, pleasant - Head Head exam: Present: atraumatic, normocephalic - Eye Eye exam: Present: PERRL, conjuntiva pink, sclera anicteric Pupils: Present: PERRL - Neck Neck exam general surgery: Present: supple, trachea midline. Absent: lymphadenopathy - Respiratory Respiratory exam: Present: CTAB. Absent: accessory muscle use, rales, rhonchi, wheezes - Cardiovascular Cardiovascular exam: Present: RRR, +S1, +S2. Absent: diastolic murmur, gallop, rubs, systolic murmur - GI/Abdominal GI/Abdominal exam: Present: normal bowel sounds, soft, no peritoneal signs. Absent: distended, tenderness - Extremities Exam Extremities exam: Present: warm, radial pulses palpable and symmetrical. Absent : calf tenderness, cyanotic, pedal edema - Neurological Exam Neurological exam: Present: CN II-XII intact, oriented X3, no focal deficits. Absent: pronater drift, facial droop, speech deficit - Skin Skin exam: Present: dry, intact Internal Medicine: Result - Labs CBC & Chem 7: 05/07/18 04:22 05/07/18 04:22 Labs: Short CBC 05/07/18 Range/Units 04:22 WBC 22.1 H D (4.3-11.1) K/mcL Hgb 12.2 L (12.9-16.9) g/dL Hct 36.8 L (37.5-50.1) % Plt Count 326 (140-400) K/mcL BMP 05/07/18 04:22 Sodium 136 Potassium 4.1 Chloride 105 Carbon Dioxide 25 BUN 17 Creatinine 1.00 Glucose 151 H Calcium 9.2 - ABG Interpretation ABG results: PT/INR, D-dimer PT 11.2 Seconds (9.4-12.1) 05/05/18 20:25 Consult Discharge Plan - Plan Referrals: Quinton Avila MD [Primary Care Provider] - (Follow up appointment with PCP has been requested. )
[2018-05-07] MEDS: Acetaminophen 325 MG TABLET PO PRN (12:01)
--- NOTE | 2018-05-07 13:38 | Internal Med Progress Note ---
Date of Encounter: 05/07/18 Time of Encounter: 13:37 - Assessment and plan (1) COPD exacerbation Current Visit: Yes Status: Acute Assessment and plan: has known COPD with chronic respiratory failure (wears oxygen 3 L at home). Presented with worsening of progressive shortness of breath; COPD exacerbation most likely caused by URI. Symptomatic with diffuse wheezing and persistent SOB on exam. CXR nonacute. CTA negative for pulmonary embolism or pneumonia. Continue azithromycin, IV steroids and DuoNeb's. Smoking cessation advised. Refused respiratory PCR. (2) Hypertension Current Visit: No Status: Chronic Assessment and plan: BP elevated on arrival. No official diagnosis of hypertension. BP normalized without intervention. Elevation of BP likely secondary to acute COPD exacerbation/SOB. Continue to monitor BP Qualifiers: Hypertension type: essential hypertension Qualified Code(s): I10 - Essential (primary) hypertension (3) Lung nodule < 6cm on CT Current Visit: Yes Status: Acute Assessment and plan: chest CTA with 5 mm pulmonary nodule to RLL. He is a smoker therefore considered high risk. Recommend repeating CT in 12 months. (4) DVT prophylaxis Current Visit: No Status: Acute Assessment and plan: Heparin - Time Spent With Patient Total time spent is greater than 50% in coordination of care (as documented) at patient's floor/unit and/or counseling patient: - Subjective Interval history: Seen and examined at bedside; says he feels worse today than yesterday. Still having productive cough and wheezing. Does not feel he is ready to go home today. - Constitutional Vitals: Temp Pulse Resp BP Pulse Ox 98.0 F 104 16 106/67 96 05/07/18 12:26 05/07/18 12:26 05/07/18 12:26 05/07/18 12:26 05/07/18 12:26 General appearance: Present: cachectic, mild distress, A&O X 3, pleasant - Head Head exam: Present: atraumatic, normocephalic - Eye Eye exam: Present: PERRL, conjuntiva pink, sclera anicteric Pupils: Present: PERRL - Neck Neck exam general surgery: Present: supple, trachea midline. Absent: lymphadenopathy - Respiratory Respiratory exam: Present: CTAB, respiratory distress (mild resp distress ), wheezes. Absent: accessory muscle use, rales, rhonchi - Cardiovascular Cardiovascular exam: Present: RRR, +S1, +S2. Absent: diastolic murmur, gallop, rubs, systolic murmur - GI/Abdominal GI/Abdominal exam: Present: normal bowel sounds, soft, no peritoneal signs. Absent: distended, tenderness - Extremities Exam Extremities exam: Present: warm, radial pulses palpable and symmetrical. Absent : calf tenderness, cyanotic, pedal edema - Neurological Exam Neurological exam: Present: CN II-XII intact, oriented X3, no focal deficits. Absent: pronater drift, facial droop, speech deficit - Skin Skin exam: Present: dry, intact Internal Medicine: Result - Labs CBC & Chem 7: 05/07/18 04:22 05/07/18 04:22 Labs: Short CBC 05/07/18 Range/Units 04:22 WBC 22.1 H D (4.3-11.1) K/mcL Hgb 12.2 L (12.9-16.9) g/dL Hct 36.8 L (37.5-50.1) % Plt Count 326 (140-400) K/mcL BMP 05/07/18 04:22 Sodium 136 Potassium 4.1 Chloride 105 Carbon Dioxide 25 BUN 17 Creatinine 1.00 Glucose 151 H Calcium 9.2 - ABG Interpretation ABG results: PT/INR, D-dimer PT 11.2 Seconds (9.4-12.1) 05/05/18 20:25 - Impressions Impressions Chest CTA 05/07/18 09:36 IMPRESSION: No evidence of pulmonary embolism or acute pulmonary abnormality. 5 mm right lower lobe pulmonary nodule. Follow-up as described below. Fleischner Society guidelines for follow-up and management of incidentally detected pulmonary nodules: Single Solid Nodule: Nodule size less than 6 mm In a low-risk patient, no routine follow-up. In a high-risk patient, optional CT at 12 months. - Low risk patients include individuals with minimal or absent history of smoking and other known risk factors. - High risk patients include individuals with a history or smoking or known risk factors. Radiology 2017 http://pubs.rsna.org/doi/full/10.1148/radiol.8002989204 D/ / Aram Stern MD / Aram Stern MD Interpreting Provider: Aram Stern MD Consult Discharge Plan - Plan Referrals: Quinton Avila MD [Primary Care Provider] - (Follow up appointment with PCP has been requested. )
[2018-05-07] MEDS: GuaiFENesin/Codeine Oral Soln 5 ML UDC PO PRN (20:20)
[2018-05-08] MEDS: MethylPREDNISolone 40 MG/ML VIAL IVP SCH ×2 (00:53→08:40)
[2018-05-08] MEDS: Ipratropium/Albuterol Neb 3 ML IH SCH ×6 (04:28→23:27)
[2018-05-08 05:08] LABS: Hematocrit 40.9 % (37.5-50.1); Hemoglobin 13.1 g/dL (12.9-16.9); Mean Corpuscular Hemoglobin 28.5 pg (28.0-33.3); Mean Corpuscular Volume 89.1 fL (83.0-100.0); Mean Platelet Volume 9.6 fL (9.4-12.4); Platelet Count 351 K/mcL (140-400); Red Blood Count 4.59 M/mcL (4.19-5.50); Red Cell Distribution Width 14.1 % (11.5-14.5)
[2018-05-08] MEDS: Azithromycin 250 MG TABLET PO SCH (08:40)
[2018-05-08] MEDS: Acetaminophen 325 MG TABLET PO PRN (08:52)
[2018-05-08] MEDS: *HR* Heparin 5,000 UNIT/ML VIAL SQ SCH ×2 (08:56→17:10)
--- NOTE | 2018-05-08 10:52 | Internal Med Progress Note ---
Date of Encounter: 05/08/18 Time of Encounter: 10:49 - Assessment and plan (1) COPD exacerbation Current Visit: Yes Status: Acute Assessment and plan: has known COPD with chronic respiratory failure (wears oxygen 3 L at home). Presented with worsening of progressive shortness of breath; COPD exacerbation most likely caused by URI. Symptomatic with diffuse wheezing and persistent SOB on exam. CXR nonacute. CTA negative for pulmonary embolism or pneumonia. Continue azithromycin, Smoking cessation advised. Refused respiratory PCR. Change IV steroids to oral prednisone today, started patient on Symbicort based on his symptoms. Planning discharge the patient tomorrow. (2) Hypertension Current Visit: No Status: Chronic Assessment and plan: BP elevated on arrival. No official diagnosis of hypertension. BP normalized without intervention. Elevation of BP likely secondary to acute COPD exacerbation/SOB. Continue to monitor BP Qualifiers: Hypertension type: essential hypertension Qualified Code(s): I10 - Essential (primary) hypertension (3) DVT prophylaxis Current Visit: No Status: Acute Assessment and plan: Heparin (4) Lung nodule < 6cm on CT Current Visit: Yes Status: Acute Assessment and plan: chest CTA with 5 mm pulmonary nodule to RLL. He is a smoker therefore considered high risk. Recommend repeating CT in 12 months. - Time Spent With Patient Total time spent is greater than 50% in coordination of care (as documented) at patient's floor/unit and/or counseling patient: Greater than 35 minutes - Subjective Interval history: Patient was seen and examined in the room, he reported improved respiratory symptoms. - Constitutional Vitals: Temp Pulse Resp BP Pulse Ox 96.6 F L 97 17 120/66 99 05/08/18 07:38 05/08/18 07:38 05/08/18 07:38 05/08/18 07:38 05/08/18 07:38 General appearance: Present: cachectic, mild distress, A&O X 3, pleasant Exam: PHYSICAL EXAMINATION: GENERAL APPEARANCE: The patient is alert, oriented and in no acute distress. HEENT: Head is normocephalic. The sinuses are nontender. Pupils are equal and reactive. The nares are patent. Oropharynx clear without lesions. NECK: Supple without lymphadenopathy. HEART: Regular rate and rhythm. LUNGS: Diffuse wheezing and rhonchi bilaterally. ABDOMEN: Soft, nontender, nondistended with good bowel sounds heard. Inguinal area is normal. EXTREMITIES: Without cyanosis, clubbing or edema. NEUROLOGICAL: Gross nonfocal. SKIN: Warm and dry without any rash. Internal Medicine: Result - Labs CBC & Chem 7: 05/08/18 04:51 05/07/18 04:22 Labs: Short CBC 05/08/18 Range/Units 04:51 WBC 24.5 H (4.3-11.1) K/mcL Hgb 13.1 (12.9-16.9) g/dL Hct 40.9 (37.5-50.1) % Plt Count 351 (140-400) K/mcL - ABG Interpretation ABG results: PT/INR, D-dimer PT 11.2 Seconds (9.4-12.1) 05/05/18 20:25 - Impressions Impressions Chest CTA 05/07/18 09:36 IMPRESSION: No evidence of pulmonary embolism or acute pulmonary abnormality. 5 mm right lower lobe pulmonary nodule. Follow-up as described below. Fleischner Society guidelines for follow-up and management of incidentally detected pulmonary nodules: Single Solid Nodule: Nodule size less than 6 mm In a low-risk patient, no routine follow-up. In a high-risk patient, optional CT at 12 months. - Low risk patients include individuals with minimal or absent history of smoking and other known risk factors. - High risk patients include individuals with a history or smoking or known risk factors. Radiology 2017 http://pubs.rsna.org/doi/full/10.1148/radiol.8404070763 D/ / Aram Stern MD / Aram Stern MD Interpreting Provider: Aram Stern MD Consult Discharge Plan - Plan Referrals: Quinton Avila MD [Primary Care Provider] - (Follow up appointment with PCP has been requested. )
[2018-05-08] MEDS: Budesonide/Formoterol 80/4.5 MDI IH SCH ×2 (11:20→19:52)
[2018-05-08] MEDS: predniSONE 20 MG TABLET PO SCH (17:09)
[2018-05-08] MEDS: Ibuprofen 400 MG TABLET PO PRN (18:55)
[2018-05-09] MEDS: Ipratropium/Albuterol Neb 3 ML IH SCH ×6 (03:40→23:21)
[2018-05-09] MEDS: Ibuprofen 400 MG TABLET PO PRN ×2 (03:43→19:28)
[2018-05-09] MEDS: *HR* Heparin 5,000 UNIT/ML VIAL SQ SCH ×2 (05:22→16:30)
[2018-05-09] MEDS: Budesonide/Formoterol 80/4.5 MDI IH SCH ×2 (07:59→19:47)
[2018-05-09] MEDS: Azithromycin 250 MG TABLET PO SCH (08:42)
[2018-05-09] MEDS: predniSONE 20 MG TABLET PO SCH (08:42)
--- NOTE | 2018-05-09 10:09 | Internal Med Progress Note ---
Date of Encounter: 05/09/18 Time of Encounter: 10:57 - Assessment and plan (1) COPD exacerbation Current Visit: Yes Status: Acute Assessment and plan: Known history of COPD PFT 01/24/16 spirometry: Severe obstructive ventilatory impairment FEV1 1.02, 41 % predicted lung volumes: SVC reduced, flow volume Loop obstructive Patient has not followed with pulmonology for greater than one year Admits to being very noncompliant with COPD medication regimen; stating "I have not taken any COPD medications for 4-6 months " History of tobacco abuse and continues to be a daily greater than one pack per day smoker Presented with worsening dyspnea, chronic respiratory failure with hypoxia wearing 3 L at home. Requiring oxygen greater than baseline at times Unclear whether or not COPD exacerbation as caused by solely medication noncompliance or multifactorial with potential URI We will check respiratory infection panel at this time Sputum cultures pending Chest x-ray with no acute pulmonary process CTA obtained and negative for PE, pneumonia. 5 mm lung nodule found, high risk patient follow-up in 12 months Smoking cessation advised Offered pulmonology consult for medication optimization however, patient refused Instructed to use incentive spirometer Continue azithromycin Increase Symbicort dose to 2 puffs twice a day Discontinue oral prednisone and started 60 mg IV push every 6 hours as the patient is at increase in dyspnea overnight and increase in wheezing Per auscultation patient was found to have coarse expiratory wheezing throughout , prolonged expiratory phase diminished breath sounds and shortness of breath. Noted to have conversational dyspnea. Given current condition and degree of noncompliance as well as the need for medical optimization the patient is not suitable for discharge today (2) Hypertension Current Visit: No Status: Chronic Assessment and plan: BP elevated on arrival Has not been officially diagnosed with hypertension Throughout stay BP normalized without intervention Continue to closely monitor-today's BP stable 131/74 05/09/18 Qualifiers: Hypertension type: essential hypertension Qualified Code(s): I10 - Essential (primary) hypertension (3) Lung nodule < 6cm on CT Current Visit: Yes Status: Acute Assessment and plan: chest CTA with 5 mm pulmonary nodule to RLL This is an increase in size from prior imaging per patient report Patient is high risk due to smoking history Repeat CT in 12 months This is discussed with patient who verbalizes understanding and denies any further questions However he is very noncompliant and I am highly doubtful he will follow-up with CAT scan Refusing pulmonology consult during this stay Plan was to consult pulmonology for further evaluation of patient's medication regimen and further optimization however patient declined (4) Chronic respiratory failure Current Visit: Yes Status: Acute Assessment and plan: Chronic respiratory failure with hypoxia, compares 3 L nasal cannula chronically Admitted for acute exacerbation of COPD, increasing dyspnea, dry nonproductive cough Coarse expiratory wheezing throughout lungs, continued to have oxygen requirements greater than baseline 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 Admittedly noncompliant with COPD medications and has not taken them at all over the last 4-6 months Continues to smoke daily greater than one pack per day Qualifiers: Respiratory failure complication: hypoxia Qualified Code(s): J96.11 - Chronic respiratory failure with hypoxia (5) Smoker Current Visit: Yes Status: Acute Assessment and plan: Discussed the need for smoking cessation especially in the setting of worsening COPD (6) DVT prophylaxis Current Visit: No Status: Acute Assessment and plan: Continue SQ Heparin - Time Spent With Patient Total time spent is greater than 50% in coordination of care (as documented) at patient's floor/unit and/or counseling patient: 25 - 35 minutes - Subjective Interval history: Patient seen and examined at bedside today. Reporting that he has had an increase in shortness of breath and wheezing overnight. Denies any fever. Admits to nonproductive cough - Constitutional Vitals: Temp Pulse Resp BP Pulse Ox 97.6 F 97 17 137/85 95 05/09/18 06:59 05/09/18 06:59 05/09/18 06:59 05/09/18 06:59 05/09/18 06:59 General appearance: Present: cachectic, mild distress, A&O X 3, pleasant - Head Head exam: Present: atraumatic, normocephalic - Eye Eye exam: Present: PERRL, conjuntiva pink, sclera anicteric Pupils: Present: PERRL - Neck Neck exam general surgery: Present: supple, trachea midline. Absent: lymphadenopathy - Respiratory Respiratory exam: Present: decreased breath sounds, CTAB, prolonged expiratory phase, respiratory distress (Mild respiratory distress), wheezes (Coarse expiratory wheezes throughout), tachypnea. Absent: accessory muscle use, chest wall tenderness, rales, rhonchi - Cardiovascular Cardiovascular exam: Present: RRR, +S1, +S2. Absent: diastolic murmur, gallop, rubs, systolic murmur - GI/Abdominal GI/Abdominal exam: Present: normal bowel sounds, soft, no peritoneal signs. Absent: distended, tenderness - Extremities Exam Extremities exam: Present: warm, radial pulses palpable and symmetrical. Absent : calf tenderness, cyanotic, pedal edema - Neurological Exam Neurological exam: Present: CN II-XII intact, oriented X3, no focal deficits. Absent: pronater drift, facial droop, speech deficit - Skin Skin exam: Present: dry, intact Internal Medicine: Result - Labs CBC & Chem 7: 05/08/18 04:51 05/07/18 04:22 - ABG Interpretation ABG results: PT/INR, D-dimer PT 11.2 Seconds (9.4-12.1) 05/05/18 20:25 Consult Discharge Plan - Plan Referrals: Quinton Avila MD [Primary Care Provider] - (Follow up appointment with PCP has been requested. )
[2018-05-09] MEDS: methylPREDNISolone 125 MG/2 ML VIAL IVP SCH ×3 (11:54→23:30)
[2018-05-09 15:32] LABS: Adenovirus Not Detected (Not Detect); Bordetella Pertussis Not Detected (Not Detect); Chlamydophila pneumoniae Not Detected (Not Detect); Coronavirus 229E Not Detected (Not Detect); Coronavirus HKU1 Not Detected (Not Detect); Coronavirus NL63 Not Detected (Not Detect); Coronavirus OC43 Not Detected (Not Detect); Human Metapneumovirus Not Detected (Not Detect); Human Rhinovirus/Enterovirus ***DETECTED*** (Not Detect); Influenza A Subtype 2009 H1 Not Detected (Not Detect); Influenza A Untypeable Not Detected (Not Detect); Influenza B Not Detected (Not Detect); Mycoplasma pneumoniae Not Detected (Not Detect); Parainfluenza Virus 1 Not Detected (Not Detect); Parainfluenza Virus 2 Not Detected (Not Detect); Parainfluenza Virus 3 Not Detected (Not Detect); Parainfluenza Virus 4 Not Detected (Not Detect); Respiratory Syncytial Virus Not Detected (Not Detect)
[2018-05-10] MEDS: Ipratropium/Albuterol Neb 3 ML IH SCH ×6 (03:40→23:28)
[2018-05-10 05:13] LABS: Basophils # 0.1 K/mcL (0.0-0.2); Basophils % 0.8 %; Hematocrit 38.3 % (37.5-50.1); Hemoglobin 12.5 g/dL (12.9-16.9); Immature Granulocytes % 7.4 % (0-4); Lymphocytes # 1.1 K/mcL (0.6-4.6); Lymphocytes % 7.9 %; Mean Corpuscular HGB Conc 32.6 g/dL (31.6-35.5); Mean Corpuscular Hemoglobin 28.4 pg (28.0-33.3); Mean Platelet Volume 9.9 fL (9.4-12.4); Monocytes # 0.4 K/mcL (0.0-1.3); Neutrophils # 11.5 K/mcL (1.6-8.9); Platelet Count 324 K/mcL (140-400); Red Cell Distribution Width 13.9 % (11.5-14.5); Segmented Neutrophils % 80.9 %
[2018-05-10] MEDS: methylPREDNISolone 125 MG/2 ML VIAL IVP SCH (05:19)
[2018-05-10] MEDS: *HR* Heparin 5,000 UNIT/ML VIAL SQ SCH ×2 (05:19→17:16)
[2018-05-10 05:35] LABS: BUN/Creatinine Ratio 19 (6-26); Blood Urea Nitrogen 17 mg/dL (8-23); Calcium 8.9 mg/dL (8.6-10.3); Carbon Dioxide 28 mEq/L (23-29); Chloride 102 mEq/L (98-107); Glucose 139 mg/dL (70-105); Osmolality,Calculated 290 (280-300); Potassium 4.1 mEq/L (3.5-5.1); Sodium 138 mEq/L (136-145); eGFR For African Americans > 60 (> 60); eGFR For Non-African Americans > 60 (> 60)
[2018-05-10 05:44] LABS: Platelet Estimate Normal (Normal)
[2018-05-10] MEDS: Azithromycin 250 MG TABLET PO SCH (07:47)
[2018-05-10] MEDS: Budesonide/Formoterol 80/4.5 MDI IH SCH ×2 (08:34→19:48)
[2018-05-10] MEDS ORDERED: predniSONE 20 MG TABLET PO SCH (09:00)
[2018-05-10] MEDS: Ibuprofen 400 MG TABLET PO PRN (10:16)
--- NOTE | 2018-05-10 11:52 | Internal Med Progress Note ---
Date of Encounter: 05/10/18 Time of Encounter: 11:50 - Assessment and plan (1) COPD exacerbation Current Visit: Yes Status: Acute Assessment and plan: Known history of COPD PFT 01/24/16 spirometry: Severe obstructive ventilatory impairment FEV1 1.02, 41 % predicted lung volumes: SVC reduced, flow volume Loop obstructive Patient has not followed with pulmonology for greater than one year Admits to being very noncompliant with COPD medication regimen; stating "I have not taken any COPD medications for 4-6 months " History of tobacco abuse and continues to be a daily greater than one pack per day smoker; however he did inform me today that he would like to quit smoking. He was offered a nicotine patch but declined Presented with worsening dyspnea. Has h/o chronic respiratory failure with hypoxia wearing 3 L at home but only at night. Walked in the hallway today and was hypoxic and dyspneic; SPO2 dropped to 86%, improved with 2 minute rest Will require oxygen at all times upon discharge, however patient is noncompliant with COPD regimen COPD exacerbation is likely multifactorial with medication noncompliance and URI Respiratory infection panel positive for rhinovirus Sputum cultures no growth to date Chest x-ray with no acute pulmonary process CTA obtained and negative for PE, pneumonia. 5 mm lung nodule found, high risk patient follow-up in 12 months; patient informed of need for follow-up, verbalizes understanding Smoking cessation advised-wishes to quit smoking however declines nicotine patch when offered Offered pulmonology consult for medication optimization however, patient refused ; patient states "I will not go to pulmonary rehabilitation " Instructed to use incentive spirometer while inpatient Increase Symbicort dose to 2 puffs twice a day Discontinue IV steroids, start oral prednisone 40 mg daily; plan to discharge with steroid taper Per auscultation patient was found to have expiratory wheezing throughout, scattered rhonchi, prolonged expiratory phase diminished breath sounds and shortness of breath. Not having conversational dyspnea today Given current condition and degree of noncompliance as well as the need for medical optimization the patient is not suitable for discharge today, consider tomorrow pending changes overnight (2) Hypertension Current Visit: No Status: Chronic Assessment and plan: BP elevated on arrival, stable today 05/10/18 Has not been officially diagnosed with hypertension Throughout stay BP normalized without intervention Continue to closely monitor BP Qualifiers: Hypertension type: essential hypertension Qualified Code(s): I10 - Essential (primary) hypertension (3) Lung nodule < 6cm on CT Current Visit: Yes Status: Acute Assessment and plan: chest CTA with 5 mm pulmonary nodule to RLL This is an increase in size from prior imaging per patient report Patient is high risk due to smoking history Repeat CT in 12 months This is discussed with patient who verbalizes understanding and denies any further questions However he is very noncompliant and I am highly doubtful he will follow-up with CAT scan Refusing pulmonology consult during this stay Plan was offered consultation to pulmonology for further evaluation of patient' s medication regimen and further optimization however patient declined (4) Chronic respiratory failure Current Visit: Yes Status: Acute Assessment and plan: Chronic respiratory failure with hypoxia, wears 3 L nasal cannula chronically, back to baseline 02 today at [facility] however, continuing to have dyspnea above baseline with activity Admitted for acute exacerbation of COPD, increasing dyspnea, and a chronic dry nonproductive cough, most likely caused by copd Diminished breath sounds throughout with Coarse expiratory wheezing throughout lungs today with scatter rhonchi 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; offered pulmonology consultation for further evaluation and for medication optimization however, patient declined and does not wish to see director family Patient reports also that he does not wish to participate in pulmonary rehabilitation He is admittedly noncompliant with COPD medications and has not taken them at all over the last 4-6 months or greater he is unsure Continues to smoke daily greater than one pack per day; however this morning informs me that he wishes to quit; although, he is refusing a nicotine patch see above Qualifiers: Respiratory failure complication: hypoxia Qualified Code(s): J96.11 - Chronic respiratory failure with hypoxia (5) Smoker Current Visit: Yes Status: Acute Assessment and plan: Discussed the need for smoking cessation especially in the setting of worsening COPD patient verbalizes understanding and reports that he would like to quit I offered nicotine patches but he declined (6) DVT prophylaxis Current Visit: No Status: Acute Assessment and plan: Cont SQ Heparin - Time Spent With Patient Total time spent is greater than 50% in coordination of care (as documented) at patient's floor/unit and/or counseling patient: 25 - 35 minutes - Subjective Interval history: Patient seen and examined at bedside today. Continues to have shortness of breath and wheezing, reports that it has not worsened but also has not improved. Denies any fever or chills but admits to chronic nonproductive cough - Constitutional Vitals: Temp Pulse Resp BP Pulse Ox 98.8 F 101 16 115/62 98 05/10/18 10:50 05/10/18 10:50 05/10/18 11:37 05/10/18 10:50 05/10/18 11:37 General appearance: Present: cachectic, mild distress, A&O X 3, pleasant - Head Head exam: Present: atraumatic, normocephalic - Eye Eye exam: Present: PERRL, conjuntiva pink, sclera anicteric Pupils: Present: PERRL - Neck Neck exam general surgery: Present: supple, trachea midline. Absent: lymphadenopathy - Respiratory Respiratory exam: Present: accessory muscle use (with activity), decreased breath sounds, CTAB, prolonged expiratory phase, rhonchi, wheezes (expiratory wheezing throughout). Absent: chest wall tenderness, rales - Cardiovascular Cardiovascular exam: Present: RRR, +S1, +S2. Absent: diastolic murmur, gallop, rubs, systolic murmur - GI/Abdominal GI/Abdominal exam: Present: normal bowel sounds, soft, no peritoneal signs. Absent: distended, tenderness - Extremities Exam Extremities exam: Present: warm, radial pulses palpable and symmetrical. Absent : calf tenderness, cyanotic, pedal edema - Neurological Exam Neurological exam: Present: CN II-XII intact, oriented X3, no focal deficits. Absent: pronater drift, facial droop, speech deficit - Skin Skin exam: Present: dry, intact Internal Medicine: Result - Labs CBC & Chem 7: 05/10/18 04:20 05/10/18 04:20 Labs: Short CBC 05/10/18 Range/Units 04:20 WBC 14.2 H (4.3-11.1) K/mcL Hgb 12.5 L (12.9-16.9) g/dL Hct 38.3 (37.5-50.1) % Plt Count 324 (140-400) K/mcL Neutrophils # 11.5 H (1.6-8.9) K/mcL BMP 05/10/18 04:20 Sodium 138 Potassium 4.1 Chloride 102 Carbon Dioxide 28 BUN 17 Creatinine 0.89 Glucose 139 H Calcium 8.9 - ABG Interpretation ABG results: PT/INR, D-dimer PT 11.2 Seconds (9.4-12.1) 05/05/18 20:25 Consult Discharge Plan - Plan Referrals: Quinton Avila MD [Primary Care Provider] - (Follow up appointment with PCP has been requested. )
[2018-05-10] MEDS ORDERED: Naloxone 0.4 MG/ML INJ IVP PRN (14:16)
[2018-05-11] MEDS: Ipratropium/Albuterol Neb 3 ML IH SCH ×3 (03:52→11:23)
[2018-05-11 04:30] LABS: Hematocrit 39.4 % (37.5-50.1); Hemoglobin 12.8 g/dL (12.9-16.9); Mean Corpuscular HGB Conc 32.5 g/dL (31.6-35.5); Mean Corpuscular Hemoglobin 28.3 pg (28.0-33.3); Mean Platelet Volume 9.7 fL (9.4-12.4); Platelet Count 333 K/mcL (140-400); Red Blood Count 4.53 M/mcL (4.19-5.50); Red Cell Distribution Width 13.8 % (11.5-14.5)
[2018-05-11 05:04] LABS: Lymphocytes # 5.1 K/mcL (0.6-4.6); Monocytes # 0.4 K/mcL (0.0-1.3); Neutrophils # 12.7 K/mcL (1.6-8.9); Reactive Lymphocytes Present (Not Present)
[2018-05-11 05:05] LABS: Platelet Estimate Normal (Normal)
[2018-05-11] MEDS: *HR* Heparin 5,000 UNIT/ML VIAL SQ SCH (05:37)
[2018-05-11 05:49] LABS: BUN/Creatinine Ratio 20 (6-26); Blood Urea Nitrogen 20 mg/dL (8-23); Calcium 8.8 mg/dL (8.6-10.3); Carbon Dioxide 28 mEq/L (23-29); Chloride 101 mEq/L (98-107); Glucose 104 mg/dL (70-105); Osmolality,Calculated 289 (280-300); Potassium 3.8 mEq/L (3.5-5.1); Sodium 138 mEq/L (136-145); eGFR For African Americans > 60 (> 60); eGFR For Non-African Americans > 60 (> 60)
[2018-05-11] MEDS: Budesonide/Formoterol 80/4.5 MDI IH SCH (07:24)
[2018-05-11] MEDS ORDERED: predniSONE 20 MG TABLET PO SCH (09:00)
--- NOTE | 2018-05-11 10:38 | Discharge Summary ---
- NOTES TO OUTPATIENT PROVIDER Notes to Outpatient Provider: Admitted with acute exacerbation of COPD and LRI 2 /2 rhinovirus. Known history of severe obstructive ventilatory impairment. Patient very noncompliant with medication regimen has not followed up with [facility] skinner in over 1.5 years. Also admits that he is noncompliant with supportive oxygen and continues to be a daily heavy smoker. 5 mm right lower lobe lung nodule found on CTA-recommended follow-up CT in 12 months; heavily recommended abstention of tobacco use. No pending labs or studies at time of discharge, uneventful hospital course patient is discharged in baseline condition from a respiratory perspective Date of Encounter: 05/11/18 Time of Encounter: 10:34 - Discharge Diagnosis (1) COPD exacerbation Priority: Primary Status: Acute Assessment and Plan: Known history of COPD admitted with acute exacerbation of COPD secondary to lower respiratory infection Presented with progressive shortness of breath, dry nonproductive cough and coarse wheezing as well as hypoxia Respiratory infection panel completed; organism found to be entero/rhino Chest x-ray with no acute pulmonary process CTA obtained and negative for PE, pneumonia. 5 mm lung nodule found, high risk patient follow-up in 12 months; patient informed of need for follow-up, verbalizes understanding Smoking cessation advised-wishes to quit smoking however declines nicotine patch when offered Offered pulmonology consult for medication optimization however, patient refused ; patient states "I will not go to pulmonary rehabilitation " Known history of advanced COPD PFT 01/24/16 spirometry: Severe obstructive ventilatory impairment FEV1 1.02, 41 % predicted lung volumes: SVC reduced, flow volume Loop obstructive Patient has not followed with pulmonology for greater than 1.5 years Admits to being very noncompliant with COPD medication regimen and use of oxygen ; stating "I have not taken any COPD medications for 4-6 months and I only use my oxygen when I feel like I have to " History of tobacco abuse patient is a heavy smoker however, he did inform me that he would like to quit smoking. He was offered a nicotine patch but declined Respiratory status continued to improve overnight, patient now back on baseline oxygen, SPO2 98% does not appear to be in any respiratory distress. Lungs are clear/diminished throughout to auscultation, patient has remained afebrile and hemodynamically stable He is being discharged with continuous home oxygen however, given his degree of noncompliance I suspect that this will not be used appropriately Education provided on the need for compliance with COPD medications, regular pulmonology follow-up and use of oxygen. Patient verbalizes understanding denies any further questions Patient was found to have increase in WBC today of 18.1. However, he is on steroids. With improvement respiratory status I believe that the increase and PVCs are due to steroid use Chest x-ray with no acute pulmonary process Sent home with incentive spirometer Discharged with Symbicort instructed to administer 2 puffs twice a day Continue oral prednisone 40 mg today plan for 10 day taper The patient was instructed to follow-up with PCP within 1 week of discharge. Additionally, he was informed to return to the ED should shortness of breath progress or should he develop fever, chills or malaise, fatigue and cough. Patient verbalizes understanding and denies any further questions at this time. Again it should be noted that he is chronically on home oxygen and artery has home oxygen set up prior to discharge. (2) Hypertension Priority: Secondary Status: Chronic Qualifiers: Hypertension type: essential hypertension Qualified Code(s): I10 - Essential (primary) hypertension (3) Lung nodule < 6cm on CT Priority: Secondary Status: Acute (4) Chronic respiratory failure Priority: Secondary Status: Acute Qualifiers: Respiratory failure complication: hypoxia Qualified Code(s): J96.11 - Chronic respiratory failure with hypoxia (5) Smoker Priority: Secondary Status: Acute (6) Acute bronchitis Priority: Secondary Status: Acute Assessment and Plan: Acute bronchitis secondary to rhinovirus Exacerbation of COPD See treatment plan above Qualifiers: Bronchitis organism: rhinovirus Qualified Code(s): J20.6 - Acute bronchitis due to rhinovirus (7) DVT prophylaxis Priority: Secondary Status: Acute Hospital course: Mr. Stubbs is a 62 year old male Please see assessment and plan for hospital course Discharge discussed with: patient, family, nurse, social work - Time Spent with Patient Total time spent providing and/or coordinating discharge services: Less than 30 minutes - Discharge Medications Prescriptions: Budesonide/Formoterol 80/4.5 [Symbicort 80/4.5] 2 puff IH BIDR 30 Days #1 inhaler predniSONE [PredniSONE] 10 mg PO DAILY 10 Days #25 tablet Home Medications: Albuterol Sulfate [Albuterol Inhaler] 2 puff IH Q4HR PRN 30 Days #1 [email or web address] 05/11/18 [Rx] Budesonide/Formoterol 80/4.5 [Symbicort 80/4.5] 2 puff IH BIDR 30 Days #1 inhaler 05/11/18 [Rx] predniSONE [PredniSONE] 10 mg PO DAILY 10 Days #25 tablet 05/11/18 [Rx] Allergies/Adverse Reactions: 3 Allergy/AdvReac Type Severity Reaction Status Date / Time No Known Allergies Allergy Verified 05/05/18 19:45 Date of admission: 05/10/18 17:29 Primary care physician: Quinton Avila MD Discharging clinician: [place] Anticipated date of discharge: 05/11/18 - Constitutional Vitals: Temp Pulse Resp BP Pulse Ox 97.9 F 86 16 143/73 98 05/11/18 07:09 05/11/18 07:09 05/11/18 07:24 05/11/18 07:09 05/11/18 07:24 General appearance: Present: cachectic, mild distress, A&O X 3, pleasant - Head Head exam: Present: atraumatic, normocephalic - Eye Eye exam: Present: PERRL, conjuntiva pink, sclera anicteric Pupils: Present: PERRL - Neck Neck exam general surgery: Present: supple, trachea midline. Absent: lymphadenopathy - Respiratory Respiratory exam: Present: decreased breath sounds, CTAB, prolonged expiratory phase. Absent: accessory muscle use, rales, respiratory distress, rhonchi, wheezes, tachypnea - Cardiovascular Cardiovascular exam: Present: RRR, +S1, +S2. Absent: diastolic murmur, gallop, rubs, systolic murmur - GI/Abdominal GI/Abdominal exam: Present: normal bowel sounds, soft, no peritoneal signs. Absent: distended, tenderness - Extremities Exam Extremities exam: Present: warm, radial pulses palpable and symmetrical. Absent : calf tenderness, cyanotic, pedal edema - Neurological Exam Neurological exam: Present: CN II-XII intact, oriented X3, no focal deficits. Absent: pronater drift, facial droop, speech deficit - Skin Skin exam: Present: dry, intact - Patient Status Disposition: Home, Self-Care Condition: Fair Functional capacity at discharge: independent ambulation Overall status at discharge: patient is progressing back to baseline - Discharge Instructions Follow Up With: Quinton Avila MD [Primary Care Provider] - (Follow up appointment with PCP has been requested. ) - Diet and Activity Activity: increase activity as tolerated, resume usual activities as tolerated, wear oxygen at all times, wear oxygen at night Diet: advance to your usual diet
[2018-05-11 11:30] VITALS: BP 153/77
== END 2018-05-11 13:52 | disposition home or self-care (01) | DRG 191 ==
LOC: EMEROO 19:44 → 3BNU 19:44
PROVIDERS: ADMIT Family Medicine; ATTEND Family Medicine

== ENCOUNTER 2019-05-22 06:01 | Observation (INO) ==
[2019-05-22] MEDS ORDERED: 0.9 % Sodium Chloride 1,000 ML IVC ONE (06:22)
[2019-05-22] MEDS ORDERED: Ipratropium/Albuterol Neb 3 ML IH ONE (06:22)
[2019-05-22] MEDS ORDERED: methylPREDNISolone 125 MG/2 ML VIAL IVP ONE (06:24)
--- NOTE | 2019-05-22 06:28 | Emergency Department Note ---
Disposition Clinical Impression: COPD exacerbation Disposition: Admitted As Inpatient Condition: Fair Time of Disposition: 08:26 SOB HPI - General Chief Complaint: ED Shortness of Breath/Dyspnea Stated Complaint: SOB/coughing up white sputum Time Seen by Provider: 05/22/19 06:07 Source: patient, EMS Mode of arrival: private vehicle Limitations: no limitations Nursing Notes Reviewed: Yes Vital Signs Reviewed: Yes - History of Present Illness Pt Subjective Complaint: shortness of breath Onset (ago): day(s) Context: medication noncompliance Severity: moderate, severe Consistency/Duration: constant, gradually worsening Improves with: oxygen, rest, upright position Worsens with: lying flat, exertion, coughing Known history of: COPD Associated symptoms: Reports: cough, wheezing, sputum production, orthopnea. Denies: chest pain, pain with inspiration, fever, lower extremity pain, po lyuria, palpitations, hemoptysis, diaphoresis, nausea/vomiting, syncope, abdominal pain, rash, sense of impending doom Treatment prior to arrival: none Cough present: Yes Cough Description: Voluntary, Involuntary, Productive, Hacking, Rattling Cough Frequency: Intermittent Sputum production: Yes Sputum Amount: Small Sputum Color: White - Related Data Home oxygen amount: 2 liters (prn) Previous Rx's Medication Instructions Recorded Ipratropium/Albuterol Neb [Duoneb] 3 ml IH Q4H PRN 30 Days #1 inhsol 05/11/18 predniSONE [PredniSONE] 10 mg PO DAILY 10 Days #25 tablet 05/11/18 Allergies Allergy/AdvReac Type Severity Reaction Status Date / Time No Known Allergies Allergy Verified 05/22/19 06:06 All systems ED: reviewed and negative except as stated. Review of Systems: As Per HPI Constitutional: Denies: fever, chills, weakness, weight change, night sweats ENT ED: Denies: throat pain, congestion, dysphagia Cardiovascular: Reports: as per HPI, dyspnea on exertion, orthopnea. Denies: chest pain, palpitations, edema, syncope, paroxysmal nocturnal dyspnea Respiratory: Reports: as per HPI, cough, dyspnea, wheezes, sputum production. Denies: hemoptysis, stridor Gastrointestinal: Denies: abdominal pain, nausea, vomiting, diarrhea Genitourinary: Denies: dysuria, frequency Musculoskeletal: Denies: back pain, neck pain, joint swelling, arthralgia Integumentary: Denies: rash Neurological: Reports: headache (frontal, not first or worst headache of life. Gradual onset since arriving here. Nothing makes it better or worse. No neuro complaints. ). Denies: weakness, numbness, paresthesias, confusion, abnormal gait, vertigo Endocrine: Denies: fatigue, heat or cold intolerance, polydipsia, polyuria Hematological/Lymphatic: Denies: easy bleeding, easy bruising Allergic/Immunologic: Denies: facial swelling, urticaria Past Medical History - Past Medical History Attestation: Yes The following information was validated with the patient. Source: patient, old records reviewed Medical history: Reports: arthritis, COPD, coronary artery disease, GERD, hyperlipidemia, hypertension, myocardial infarction Psychiatric history: Reports: no psych history - Social History Smoking Status: Current every day smoker Smokeless Tobacco Status: No Alcohol use: Reports: none Drug use: Reports: none Physical Exam - General Limitations: no limitations General appearance: alert, in no apparent distress - Head Head exam: atraumatic, normocephalic, normal inspection - Eye Eye exam: Present: normal appearance. Absent: scleral icterus, conjunctival injection, miosis, mydriasis, periorbital swelling - ENT ENT exam: normal oropharynx, mucous membranes moist - Neck Neck exam: Present: normal inspection, full ROM, trachea midline. Absent: meningismus, lymphadenopathy - Chest Chest inspection: Present: normal inspection, symmetric chest wall rise. Absent: tenderness - Respiratory Respiratory exam: Present: respiratory distress (mild, able to speak in 2-3 word sentences then has to pause to breath. ), wheezes, accessory muscle use, prolonged expiratory phase. Absent: stridor - Expanded Respiratory Exam Location: wheezes: Left, Right, Upper, Lower, decreased breath sounds: Left, Right, Upper, Lower - Cardiovascular Cardiovascular exam: Present: regular rate, normal rhythm, normal heart sounds - Extremities Exam Extremities exam: Present: normal inspection, full ROM, normal capillary refill - Back Exam Back exam: Present: normal inspection, full ROM - Neurological Exam Neurological exam: Present: alert, oriented X3, CN II-XII intact, normal gait - Psychiatric Psychiatric exam: Present: normal affect, normal mood - Skin Skin exam: Present: warm, dry, intact, normal color Course Course Narrative: Patient with hx of COPD to ED from home for eval of TERRI x 3 days, worse since last night. Couldn't sleep because felt too short of breath, so came in. Cough worse than usual. No fever/chills. On exam he appears uncomfortable but non- toxic. He is very wheezy and tight throughout, tachypneic but not tachycardic. Labs, meds, CXR and ECG ordered. Patient has had 3 duonebs and solu-medrol with little improvement in lung sounds or dyspnea. Sats on 3L O2 are 98%. Will get ambulatory vitals. Case discussed with Dr. Grover. He has had face to face time with the patient and agrees with the assessment and recommends admission. Hospitalist paged. Vital Signs Temperature 98.4 F 05/22/19 06:11 Pulse Rate 90 05/22/19 06:11 Respiratory Rate 26 05/22/19 06:11 Blood Pressure 148/78 05/22/19 06:11 O2 Sat by Pulse Oximetry 95 05/22/19 06:11 Temperature 98.4 F 05/22/19 06:13 Pulse Rate 82 05/22/19 06:22 Respiratory Rate 16 05/22/19 06:42 Blood Pressure 148/78 05/22/19 06:22 O2 Sat by Pulse Oximetry 97 05/22/19 06:42 Oxygen Delivery Oxygen Delivery Nasal Cannula Shortness of Breath/Dyspnea - Medical Records Medical records reviewed: Yes I reviewed the patient's medical records. - Lab Data Lab results reviewed: Yes I reviewed the patient's lab results. Lab results narrative: Laboratory Last Values WBC 10.9 K/mcL (4.3-11.1) 05/22/19 06:33 RBC 4.90 M/mcL (4.19-5.50) 05/22/19 06:33 Hgb 14.3 g/dL (12.9-16.9) 05/22/19 06:33 Hct 43.8 % (37.5-50.1) 05/22/19 06:33 MCV 89.4 fL (83.0-100.0) 05/22/19 06:33 MCH 29.2 pg (28.0-33.3) 05/22/19 06:33 MCHC 32.6 g/dL (31.6-35.5) 05/22/19 06:33 RDW 13.8 % (11.5-14.5) 05/22/19 06:33 Plt Count 293 K/mcL (140-400) 05/22/19 06:33 MPV 9.4 fL (9.4-12.4) 05/22/19 06:33 Immature Gran % 0.6 % (0-4) 05/22/19 06:33 Seg Neutrophils % 72.6 % 05/22/19 06:33 Lymphocytes % 13.7 % 05/22/19 06:33 Monocytes % 9.4 % 05/22/19 06:33 Eosinophils % 2.9 % 05/22/19 06:33 Basophils % 0.8 % 05/22/19 06:33 Neutrophils # 7.9 K/mcL (1.6-8.9) 05/22/19 06:33 Lymphocytes # 1.5 K/mcL (0.6-4.6) 05/22/19 06:33 Monocytes # 1.0 K/mcL (0.0-1.3) 05/22/19 06:33 Eosinophils # 0.3 K/mcL (0.0-0.6) 05/22/19 06:33 Basophils # 0.1 K/mcL (0.0-0.2) 05/22/19 06:33 Sodium 142 mEq/L (136-145) 05/22/19 06:33 Potassium 3.7 mEq/L (3.5-5.1) 05/22/19 06:33 Chloride 104 mEq/L (98-107) 05/22/19 06:33 Carbon Dioxide 29 mEq/L (23-29) 05/22/19 06:33 BUN 12 mg/dL (8-23) 05/22/19 06:33 Creatinine 1.20 mg/dL (0.70-1.30) 05/22/19 06:33 Est GFR ( Amer) > 60 (> 60) 05/22/19 06:33 Est GFR (Non-Af Amer) > 60 (> 60) 05/22/19 06:33 BUN/Creatinine Ratio 10 (6-26) 05/22/19 06:33 Glucose 105 mg/dL (70-105) 05/22/19 06:33 Calculated Osmolality 294 (280-300) 05/22/19 06:33 Lactic Acid 1.0 mmol/L (0.5-2.2) 05/22/19 06:33 Calcium 9.3 mg/dL (8.6-10.3) 05/22/19 06:33 Total Bilirubin 0.3 mg/dL (0.3-1.0) 05/22/19 06:33 Direct Bilirubin 0.1 mg/dL (0.0-0.2) 05/22/19 06:33 Indirect Bilirubin 0.2 mg/dL (0.0-1.2) 05/22/19 06:33 AST 16 Units/L (13-39) 05/22/19 06:33 ALT 12 Units/L (7-52) 05/22/19 06:33 Alkaline Phosphatase 84 Units/L (34-104) 05/22/19 06:33 Troponin I < 0.03 ng/mL (< 0.04) 05/22/19 06:33 B-Natriuretic Peptide 42 pg/mL (Less than 100) 05/22/19 06:33 Serum Total Protein 7.1 g/dL (6.4-8.9) 05/22/19 06:33 Albumin 4.2 g/dL (3.5-5.7) 05/22/19 06:33 Globulin 2.9 g/dL (2.4-3.5) 05/22/19 06:33 Albumin/Globulin Ratio 1.4 (1.1-2.2) 05/22/19 06:33 Result diagrams: 05/22/19 06:33 05/22/19 06:33 Lab Results 05/22/19 05/22/19 05/22/19 Range/Units 06:33 06:33 06:33 WBC 10.9 (4.3-11.1) K/mcL RBC 4.90 (4.19-5.50) M/mcL Hgb 14.3 (12.9-16.9) g/dL Hct 43.8 (37.5-50.1) % MCV 89.4 (83.0-100.0) fL MCH 29.2 (28.0-33.3) pg MCHC 32.6 (31.6-35.5) g/dL RDW 13.8 (11.5-14.5) % Plt Count 293 (140-400) K/mcL MPV 9.4 (9.4-12.4) fL Immature Gran % 0.6 (0-4) % Seg Neutrophils % 72.6 % Lymphocytes % 13.7 % Monocytes % 9.4 % Eosinophils % 2.9 % Basophils % 0.8 % Neutrophils # 7.9 (1.6-8.9) K/mcL Lymphocytes # 1.5 (0.6-4.6) K/mcL Monocytes # 1.0 (0.0-1.3) K/mcL Eosinophils # 0.3 (0.0-0.6) K/mcL Basophils # 0.1 (0.0-0.2) K/mcL Sodium 142 (136-145) mEq/L Potassium 3.7 (3.5-5.1) mEq/L Chloride 104 (98-107) mEq/L Carbon Dioxide 29 (23-29) mEq/L BUN 12 (8-23) mg/dL Creatinine 1.20 (0.70-1.30) mg/dL Est GFR ( Amer) > 60 (> 60) Est GFR (Non-Af Amer) > 60 (> 60) BUN/Creatinine Ratio 10 (6-26) Glucose 105 (70-105) mg/dL Calculated Osmolality 294 (280-300) Lactic Acid 1.0 (0.5-2.2) mmol/L Calcium 9.3 (8.6-10.3) mg/dL Total Bilirubin 0.3 (0.3-1.0) mg/dL Direct Bilirubin 0.1 (0.0-0.2) mg/dL Indirect Bilirubin 0.2 (0.0-1.2) mg/dL AST 16 (13-39) Units/L ALT 12 (7-52) Units/L Alkaline Phosphatase 84 (34-104) Units/L Troponin I < 0.03 (< 0.04) ng/mL B-Natriuretic Peptide (Less than 100) pg/mL Serum Total Protein 7.1 (6.4-8.9) g/dL Albumin 4.2 (3.5-5.7) g/dL Globulin 2.9 (2.4-3.5) g/dL Albumin/Globulin Ratio 1.4 (1.1-2.2) 05/22/19 Range/Units 06:33 WBC (4.3-11.1) K/mcL RBC (4.19-5.50) M/mcL Hgb (12.9-16.9) g/dL Hct (37.5-50.1) % MCV (83.0-100.0) fL MCH (28.0-33.3) pg MCHC (31.6-35.5) g/dL RDW (11.5-14.5) % Plt Count (140-400) K/mcL MPV (9.4-12.4) fL Immature Gran % (0-4) % Seg Neutrophils % % Lymphocytes % % Monocytes % % Eosinophils % % Basophils % % Neutrophils # (1.6-8.9) K/mcL Lymphocytes # (0.6-4.6) K/mcL Monocytes # (0.0-1.3) K/mcL Eosinophils # (0.0-0.6) K/mcL Basophils # (0.0-0.2) K/mcL Sodium (136-145) mEq/L Potassium (3.5-5.1) mEq/L Chloride (98-107) mEq/L Carbon Dioxide (23-29) mEq/L BUN (8-23) mg/dL Creatinine (0.70-1.30) mg/dL Est GFR ( Amer) (> 60) Est GFR (Non-Af Amer) (> 60) BUN/Creatinine Ratio (6-26) Glucose (70-105) mg/dL Calculated Osmolality (280-300) Lactic Acid (0.5-2.2) mmol/L Calcium (8.6-10.3) mg/dL Total Bilirubin (0.3-1.0) mg/dL Direct Bilirubin (0.0-0.2) mg/dL Indirect Bilirubin (0.0-1.2) mg/dL AST (13-39) Units/L ALT (7-52) Units/L Alkaline Phosphatase (34-104) Units/L Troponin I (< 0.04) ng/mL B-Natriuretic Peptide 42 (Less than 100) pg/mL Serum Total Protein (6.4-8.9) g/dL Albumin (3.5-5.7) g/dL Globulin (2.4-3.5) g/dL Albumin/Globulin Ratio (1.1-2.2) - Radiology Data Radiology results reviewed: Yes I reviewed the patient's radiology results. Chest X-Ray 05/22/19 06:22 IMPRESSION: 1. No radiographic evidence of acute cardiopulmonary process. 2. Findings suggestive of COPD. D/ / Portillo Nava MD / Portillo Nava MD Interpreting Provider: Portillo Nava MD - EKG Data EKG attestation: Yes I reviewed and interpreted this EKG. EKG shows normal: Reports: sinus rhythm Rate: Reports: normal Rhythm: Reports: NSR When compared to previous EKG there are: previous EKG unavailable Interpretation: Reports: no acute changes, nonspecific ST-T wave changes Attestation Statement - Attestation Attestation: Patient was seen in cooperation with physician assistant program director. I reviewed the history, physical, assessment, and plan, and I agree with the findings. I also had personal [id number] time with this patient and evaluated this patient. 63-year-old male presents to the emergency Department chief complaint of worsening shortness of breath for lasts 3-4 days. Patient also has cough with increased sputum production. He supposed to be on 3 L at home but he admits to being noncompliant with that therapy. His also intermittently compliant with his breathing treatments. He said the breathing is just gotten worse and he has trouble getting around secondary to shortness of breath. Review systems as above remainder negative. Physical exam vital signs mild tachycardia. Other vital signs were stable. Room air pulse ox is very low. On 3 L his pulse ox was 96% plus. ENT is unremarkable. Heart tachycardic regular rhythm. Lungs very poor air exchange. Wheezing heard throughout. Very shallow breaths. Abdomen is soft and nontender. Extremities unremarkable. Neurologically intact. Skin no rashes. Psych normal. ED course. Patient was given a triple therapy of DuoNeb's. Also some steroids. Chest x-ray did not reveal any acute abnormalities. EKG was unremarkable. After the 3 breathing treatments patient was reevaluated he said he really did not feel any better. On reexamination his air exchange was still very poor and he had diffuse wheezing. Concern being the patient tiring out over time at home, also with his noncompliance, patient was requesting admission for additional breathing treatments. We agreed to accommodate patient's request and have him admitted for additional respiratory therapy and treatment as indicated. Hemodynamically he remained stable otherwise while in the emergency department. Agree with the physician assistant program director assessment and plan. ED procedures. I reviewed the patient's EKG as well as the resident physician interpretation and I agree with the findings.
[2019-05-22 06:52] LABS: Basophils # 0.1 K/mcL (0.0-0.2); Basophils % 0.8 %; Eosinophils # 0.3 K/mcL (0.0-0.6); Eosinophils % 2.9 %; Hematocrit 43.8 % (37.5-50.1); Hemoglobin 14.3 g/dL (12.9-16.9); Immature Granulocytes % 0.6 % (0-4); Lymphocytes # 1.5 K/mcL (0.6-4.6); Lymphocytes % 13.7 %; Mean Corpuscular HGB Conc 32.6 g/dL (31.6-35.5); Mean Corpuscular Hemoglobin 29.2 pg (28.0-33.3); Mean Corpuscular Volume 89.4 fL (83.0-100.0); Mean Platelet Volume 9.4 fL (9.4-12.4); Monocytes % 9.4 %; Neutrophils # 7.9 K/mcL (1.6-8.9); Platelet Count 293 K/mcL (140-400); Red Cell Distribution Width 13.8 % (11.5-14.5); Segmented Neutrophils % 72.6 %; White Blood Count 10.9 K/mcL (4.3-11.1)
[2019-05-22 07:13] LABS: Alanine Aminotransferase 12 Units/L (7-52); Albumin 4.2 g/dL (3.5-5.7); Albumin/Globulin Ratio 1.4 (1.1-2.2); Alkaline Phosphatase 84 Units/L (34-104); Aspartate Amino Transferase 16 Units/L (13-39); BUN/Creatinine Ratio 10 (6-26); Bilirubin,Direct 0.1 mg/dL (0.0-0.2); Bilirubin,Indirect 0.2 mg/dL (0.0-1.2); Bilirubin,Total 0.3 mg/dL (0.3-1.0); Blood Urea Nitrogen 12 mg/dL (8-23); Calcium 9.3 mg/dL (8.6-10.3); Carbon Dioxide 29 mEq/L (23-29); Chloride 104 mEq/L (98-107); Globulin 2.9 g/dL (2.4-3.5); Glucose 105 mg/dL (70-105); Osmolality,Calculated 294 (280-300); Potassium 3.7 mEq/L (3.5-5.1); Sodium 142 mEq/L (136-145); Total Protein 7.1 g/dL (6.4-8.9); eGFR For African Americans > 60 (> 60); eGFR For Non-African Americans > 60 (> 60)
[2019-05-22 07:14] LABS: Troponin I < 0.03 ng/mL (< 0.04)
[2019-05-22] MEDS ORDERED: Azithromycin 500 MG in D5% in Water 250 ML IVPB ONE (08:00)
[2019-05-22] MEDS ORDERED: cefTRIAXone 1,000 MG in 0.9 % Sodium Chloride Mini Bag 100 ML IVPB ONE (08:00)
--- NOTE | 2019-05-22 08:55 | Internal Med History&Physical ---
Date of Encounter: 05/22/19 Time of Encounter: 08:53 Internal Medicine - H&P: HPI Chief complaint: shortness of breath Admitted From: Home Plans for Post Hospital Care: Home History of present illness: Mr. Stubbs is a 63 year old male with past medical history of COPD, coronary artery disease with stent in the past many years ago, hypertension came in with complain of shortness of breath cough and increased expectoration for the past 3 days. Patient breathing and cost significantly worsened after yesterday when he shovelled dirt. He denies any fevers or chills. Has a mild headache. Uses albuterol and Symbicort at home. Last hospitalization for COPD was about a 1- 1/2 years ago. He uses 3 L of oxygen at home. He continues to smoke about a pack a day. He does mention pain in his left calf with exertion and sometimes at rest. Denies any chest pain abdominal pain back pain. This was evaluated in the ER and was found to have unremarkable labs and chest x-ray. However given patient did not have significant improvement after receiving inhaler bronchodilators in ER admission was requested. Patient was evaluated in ER. Slightly improved but still wheezing. Denies any chest pain. Patient does not know what his home medication. He knows he takes albuterol and Symbicort. Denies any allergies. Past Med Surg Social Fam HX - Past Medical History Medical history: arthritis, COPD, coronary artery disease, GERD, hyperlipidemia, hypertension, myocardial infarction Psychiatric history: no psych history - Past Surgical History Additional surgical history: Heart Cath, Cardiac Stent x1 - Social History Smoking Status: Current every day smoker Smokeless Tobacco Status: No Alcohol use: none Drug use: none - Family History Father Living Status: Mother Living Status: Hx Family Cardiac Disorders: Yes (mother) Hx Family Respiratory Disorders: Yes (most all) Hx Family Cancer: Yes (most, lung ca) Hx Family GI Disorders: No Hx Family Endocrine Disorder: Yes (grandmother) Hx Family Neuromuscular Disorders: No Hx Family Neurologic Disorders: Yes (aunt) Hx Family HEENT Disorders: No Hx Family Autoimmune Disorders: No Internal Medicine - H&P: Meds Ipratropium/Albuterol Neb [Duoneb] 3 ml IH Q4H PRN 30 Days #1 inhsol 05/11/18 [Rx] predniSONE [PredniSONE] 10 mg PO DAILY 10 Days #25 tablet 05/11/18 [Rx] Allergy/AdvReac Type Severity Reaction Status Date / Time No Known Allergies Allergy Verified 05/22/19 06:06 All Systems PM: A 10-system review of systems was performed and is negative for pertinent findings except as documented above in the HPI. - Constitutional Vitals: Temp Pulse Resp BP Pulse Ox 98.4 F 82 16 148/78 97 05/22/19 06:13 05/22/19 06:22 05/22/19 06:42 05/22/19 06:22 05/22/19 06:42 Exam: Constitutional: Vitals as noted. Conversant. Coughing Eyes : Sclera white, conjunctiva clear, no lid lag, PEARLA. ENT : Grossly normal hearing. Oropharyngeal exam unremarkable. Moist mucus membranes. No JVD, no cervical lymphadenopathy. no thyromegaly or mass. Respiratory : mild accessory muscle use. Diffuse wheezing, Lt >Rt Cardiovascular : RRR, +S1, +S2. no murmur, gallop, rubs. No chest wall tenderness GI/Abdominal : Soft, Non-tender, Non-distended, normal bowel sounds, soft, no peritoneal signs. no orgenomegaly or mass appreciated. no hernia. Musculoskeletal: no deformity noted. no edema or cyanosis. warm extremities, mild Lt calf tenderness on deep pressure, Difficult to palpate pulse. Neurological: AO X3, CN II-XII grossly intact, grossly normal motor and sensory exam. Skin: No skin rash, lesions or ulcers noted. Pych: Good insight and judgement. Intact memory. AOx3. Internal Med - H&P Results - Labs CBC & Chem 7: 05/22/19 06:33 05/22/19 06:33 Labs: Short CBC 05/22/19 Range/Units 06:33 WBC 10.9 (4.3-11.1) K/mcL Hgb 14.3 (12.9-16.9) g/dL Hct 43.8 (37.5-50.1) % Plt Count 293 (140-400) K/mcL Neutrophils # 7.9 (1.6-8.9) K/mcL BMP 05/22/19 06:33 Sodium 142 Potassium 3.7 Chloride 104 Carbon Dioxide 29 BUN 12 Creatinine 1.20 Glucose 105 Calcium 9.3 Cardiac Enzymes 05/22/19 Range/Units 06:33 Troponin I < 0.03 (< 0.04) ng/mL Liver Function 05/22/19 Range/Units 06:33 Total Bilirubin 0.3 (0.3-1.0) mg/dL Direct Bilirubin 0.1 (0.0-0.2) mg/dL AST 16 (13-39) Units/L ALT 12 (7-52) Units/L Alkaline Phosphatase 84 (34-104) Units/L Albumin 4.2 (3.5-5.7) g/dL - EKG Data -: EKG Interpreted by Myself EKG shows normal: sinus rhythm - Impressions ITS Impressions Chest X-Ray 05/22/19 06:22 IMPRESSION: 1. No radiographic evidence of acute cardiopulmonary process. 2. Findings suggestive of COPD. D/ / Portillo Nava MD / Portillo Nava MD Interpreting Provider: Portillo Nava MD - Assessment and Plan (1) Acute and chronic respiratory failure with hypoxia Current Visit: Yes Status: Acute Assessment and plan: Likely secondary to COPD exacerbation Patient started on IV steroids and bronchodilators. Will continue. We will continue empiric antibiotics for now. Obtain pro-calcitonin for further antibiotic guidance. Also obtain a respiratory infectious panel. Continue home Symbicort. (2) COPD exacerbation Current Visit: Yes Status: Acute Assessment and plan: As above (3) History of coronary artery disease Current Visit: No Status: Acute Assessment and plan: Continue home medication once confirmed Currently without any chest pain. (4) Lung nodule < 6cm on CT Current Visit: No Status: Acute Assessment and plan: Had lung nodule on CT in April 2018 Patient at high risk of malignancy. Will need follow-up CT soon as outpatient. (5) Tenderness of left calf Current Visit: Yes Status: Acute Assessment and plan: Patient is ambulatory. No significant identifiable risk factor and history and physical for DVT. However does have feeble pulse on the left. Could be related to peripheral artery disease. We will obtain ankle brachial index. (6) DVT prophylaxis Current Visit: No Status: Acute Assessment and plan: Heparin subcutaneous (7) Nicotine dependence Current Visit: Yes Status: Acute Assessment and plan: He continues to smoke Keep on 14 mg nicotine patch Qualifiers: Nicotine product type: cigarettes Substance use status: uncomplicated Qualified Code(s): F17.210 - Nicotine dependence, cigarettes, uncomplicated - Time Spent With Patient Total time spent is greater than 50% in coordination of care (as documented) at patient's floor/unit and/or counseling patient:
[2019-05-22] MEDS ORDERED: Ipratropium/Albuterol Neb 3 ML IH PRN (09:23)
[2019-05-22] MEDS: Budesonide/Formoterol 160/4.5 1 PUFF INH IH SCH ×2 (11:03→22:28)
[2019-05-22] MEDS: Ipratropium/Albuterol Neb 3 ML IH SCH ×3 (11:04→22:28)
[2019-05-22] MEDS: MethylPREDNISolone 40 MG/ML VIAL IVP SCH (15:27)
--- NOTE | 2019-05-22 19:59 | Event Note ---
Date of Encounter: 05/22/19 Time of Encounter: 19:57 Notified by nurse of patient requesting to discuss his CODE STATUS. Discussed CODE STATUS options with patient at bedside and he requests to be changed to a DNR CCA, and is fine with short-term intubation if necessary. CODE STATUS updated in [facility].
[2019-05-22 23:30] LABS: Adenovirus Not Detected (Not Detect); Bordetella Pertussis Not Detected (Not Detect); Chlamydophila pneumoniae Not Detected (Not Detect); Coronavirus 229E Not Detected (Not Detect); Coronavirus HKU1 Not Detected (Not Detect); Coronavirus NL63 Not Detected (Not Detect); Coronavirus OC43 Not Detected (Not Detect); Human Metapneumovirus Not Detected (Not Detect); Human Rhinovirus/Enterovirus Not Detected (Not Detect); Influenza A Subtype 2009 H1 Not Detected (Not Detect); Influenza A Untypeable Not Detected (Not Detect); Influenza B Not Detected (Not Detect); Mycoplasma pneumoniae Not Detected (Not Detect); Parainfluenza Virus 1 Not Detected (Not Detect); Parainfluenza Virus 2 Not Detected (Not Detect); Parainfluenza Virus 3 Not Detected (Not Detect); Parainfluenza Virus 4 Not Detected (Not Detect); Respiratory Syncytial Virus Not Detected (Not Detect)
[2019-05-23] MEDS: MethylPREDNISolone 40 MG/ML VIAL IVP SCH ×3 (00:38→15:58)
[2019-05-23] MEDS: Menthol 9.1 MG LOZENGE PO PRN ×2 (01:22→21:52)
[2019-05-23] MEDS: Ipratropium/Albuterol Neb 3 ML IH SCH ×4 (03:23→21:01)
[2019-05-23] MEDS: *HR* Heparin 5,000 UNIT/ML VIAL SQ SCH ×2 (04:34→19:04)
[2019-05-23] MEDS ORDERED: cefTRIAXone 1,000 MG in Water for inj. (sterile) 10 ML IVP SCH (09:00)
[2019-05-23] MEDS ORDERED: Azithromycin 500 MG in D5% in Water 250 ML IVPB SCH (10:00)
[2019-05-23] MEDS: Budesonide/Formoterol 160/4.5 1 PUFF INH IH SCH ×2 (11:07→21:01)
[2019-05-23] MEDS: Nicotine 14 MG PATCH.TD24 TD SCH (11:37)
[2019-05-23] MEDS ORDERED: Acetaminophen 325 MG TABLET PO PRN (11:51)
[2019-05-23] MEDS ORDERED: traMADol 50 MG TABLET PO PRN (11:51)
--- NOTE | 2019-05-23 11:54 | Internal Med Progress Note ---
Hospitalist Progress Note - Encounter Date of Encounter: 05/23/19 Time of Encounter: 11:52 - Subjective Interval History: Mr. Stubbs is a 63 year old male with past medical history of COPD, coronary artery disease with stent in the past many years ago, hypertension came in with complain of shortness of breath cough and increased expectoration for the past 3 days. Admitted for COPD exacerbation, started on IV abx, steroid and bronchodilators. Patient seen and examined in the room. Reported back pain and neck pain, reported improved cough and shortness of breath after treatment. Denies fever, chills, or night sweats. - Exam Vitals: Temp Pulse Resp BP Pulse Ox 97.6 F 82 18 117/74 99 05/23/19 08:15 05/23/19 08:15 05/23/19 11:06 05/23/19 08:15 05/23/19 11:06 Exam: Constitutional: Vitals as noted. Conversant. Coughing Eyes : Sclera white, conjunctiva clear, no lid lag, PEARLA. ENT : Grossly normal hearing. Oropharyngeal exam unremarkable. Moist mucus membranes. No JVD, no cervical lymphadenopathy. no thyromegaly or mass. Respiratory : mild accessory muscle use. Diffuse wheezing, Lt >Rt Cardiovascular : RRR, +S1, +S2. no murmur, gallop, rubs. No chest wall tenderness GI/Abdominal : Soft, Non-tender, Non-distended, normal bowel sounds, soft, no peritoneal signs. no orgenomegaly or mass appreciated. no hernia. Musculoskeletal: no deformity noted. no edema or cyanosis. warm extremities, mi ld Lt calf tenderness on deep pressure, Difficult to palpate pulse. Neurological: AO X3, CN II-XII grossly intact, grossly normal motor and sensory exam. Skin: No skin rash, lesions or ulcers noted. Pych: Good insight and judgement. Intact memory. AOx3. - Assessment and Plan (1) Acute and chronic respiratory failure with hypoxia Current Visit: Yes Status: Acute Assessment and Plan: Likely secondary to COPD exacerbation Patient started on IV steroids and bronchodilators. Will continue. Started on empiric antibiotics at ED, pro-calcitoninnegative, as was respiratory infectious panel. DC IV abx. Continue home Symbicort. (2) COPD exacerbation Current Visit: Yes Status: Acute Assessment and Plan: As above (3) History of coronary artery disease Current Visit: No Status: Acute Assessment and Plan: Continue home medication once confirmed Currently without any chest pain. (4) Lung nodule < 6cm on CT Current Visit: No Status: Acute Assessment and Plan: Had lung nodule on CT in April 2018 Patient at high risk of malignancy. need follow-up CT soon as outpatient. (5) Tenderness of left calf Current Visit: Yes Status: Acute Assessment and Plan: Patient is ambulatory. No significant identifiable risk factor and history and physical for DVT. However does have feeble pulse on the left. Could be related to peripheral artery disease. We will obtain ankle brachial index. (6) Nicotine dependence Current Visit: Yes Status: Acute Assessment and Plan: He continues to smoke Keep on 14 mg nicotine patch (7) DVT prophylaxis Current Visit: No Status: Acute Assessment and Plan: Heparin subcutaneous - Time Spent with Patient Total time spent is greater than 50% in coordination of care (as documented) at patient's floor/unit and/or counseling patient: Greater than 35 minutes Plan of Care Discussed with: patient Internal Medicine: Result - Labs CBC & Chem 7: 05/22/19 06:33 05/22/19 06:33 Consult Discharge Plan - Plan Referrals: NONE,PCP [Primary Care Provider] - (6) Nicotine dependence Qualifiers: Nicotine product type: cigarettes Substance use status: uncomplicated Qualified Code(s): F17.210 - Nicotine dependence, cigarettes, uncomplicated
--- NOTE | 2019-05-23 18:29 | Electrocardiograph Report ---
[place] [facility] Test Date: 2019-05-22 Pat Name: Jose C Stubbs Department: [id number] Room: 3B65 Gender: M Executive Admin: : 1955 Requested By: Magaly Hernandez Order Number: [id number] Reading MD: Nima Reynaga Measurements Intervals [place] Rate: 85 P: 86 VT: 169 QRS: 104 QRSD: 103 T: 54 QT: 395 QTc: 470 Interpretive Statements Sinus rhythm Consider left atrial enlargement Anteroseptal infarct, age indeterminate Electronically Signed On 05-23-2019 18:27:56 EDT by Nima Reynaga
[2019-05-24] MEDS: MethylPREDNISolone 40 MG/ML VIAL IVP SCH ×2 (00:17→08:06)
[2019-05-24] MEDS: Ipratropium/Albuterol Neb 3 ML IH SCH ×2 (03:45→10:40)
[2019-05-24] MEDS: *HR* Heparin 5,000 UNIT/ML VIAL SQ SCH (05:01)
[2019-05-24] MEDS: Menthol 9.1 MG LOZENGE PO PRN (07:45)
[2019-05-24] MEDS: Nicotine 14 MG PATCH.TD24 TD SCH (08:07)
[2019-05-24] MEDS ORDERED: GuaiFENesin/Pseudophedrine TABLET PO PRN (08:47)
[2019-05-24] MEDS: Budesonide/Formoterol 160/4.5 1 PUFF INH IH SCH (10:40)
--- NOTE | 2019-05-24 11:30 | Discharge Summary ---
- NOTES TO OUTPATIENT PROVIDER Notes to Outpatient Provider: f/u with PCP within 2 weeks. f/u with vascular surgery within 2-3 months Orders not resulted at time of discharge: Pending orders 05/22/19 06:33 Culture,Blood [BC] Stat 05/22/19 08:25 Resp.Virus Panel,Body Fl Stat 05/23/19 11:47 EKG [ECG 12 lead ECG] [ECG] Stat Date of Encounter: 05/24/19 Time of Encounter: 11:26 - Discharge Diagnosis (1) Acute and chronic respiratory failure with hypoxia Priority: Primary Status: Acute (2) COPD exacerbation Priority: Primary Status: Acute (3) History of coronary artery disease Priority: Secondary Status: Acute (4) Nicotine dependence Priority: Secondary Status: Chronic Qualifiers: Nicotine product type: cigarettes Substance use status: uncomplicated Qualified Code(s): F17.210 - Nicotine dependence, cigarettes, uncomplicated (5) PVD (peripheral vascular disease) Priority: Primary Status: Acute Assessment and Plan: reported left calf pain. RAEGAN of left leg <0.5, indicating severe PVD, vascular surgery consulted and will see pt today. Smoking cessation reiterated. Pt stated he has cut down cigaret from 2 packs a day to half pack a day now. (6) DVT prophylaxis Priority: Primary Status: Acute Assessment and Plan: Heparin subcutaneous Hospital course: Mr. Stubbs is a 63 year old male Mr. Stubbs is a 63 year old male with past medical history of COPD, coronary artery disease with stent in the past many years ago, hypertension came in with complain of shortness of breath cough and increased expectoration for the past 3 days. He denies any fevers or chills. Has a mild headache. Uses albuterol and Symbicort at home. Last hospitaliza tion for COPD was about a 1-1/2 years ago. He uses 3 L of oxygen at home. He continues to smoke about a pack a day. He does mention pain in his left calf with exertion and sometimes at rest. This was evaluated in the ER and was found to have unremarkable labs and chest x-ray. However given patient did not have significant improvement after receiving inhaler bronchodilators in ER, admission was requested. He was placed on IV antibiotics empirically for presumable lung infection, IV steroids and bronchodilators were also prescribed. His respiratory symptoms have improved. Respiratory panel was negative, and pro-calcitonin was normal, IV antibiotics was discontinued. RAEGAN measurement was performed which revealed less than 0.5 at the left leg, indicating severe peripheral vascular disease, vascular surgery was consulted. Smoking cessation was reiterated to patient, he verbally understands. With 2 days of treatment, patient's symptoms have dramatically improved, he has been walking in the room and hallway without shortness of breath. Patient is discharged home today, oral steroids with tapering dose, bronchodilators including albuterol for rescue treatment and Pulmicort for maintenance treatment were both prescribed, patient will also follow-up with PCP and vascular surgery as scheduled. Discharge discussed with: patient Time spent discussing smoking cessation with patient: more than 10 minutes - Time Spent with Patient Total time spent providing and/or coordinating discharge services: Time spent: Greater than 30 minutes - Discharge Medications Prescriptions: New PredniSONE [Deltasone] 40 mg PO DAILY #10 tablet GuaiFENesin/Pseudophedrine [Mucinex D] 1 each PO BID PRN #14 tab.er.12h PRN Reason: Cold Symptoms Nicotine Patch [Nicoderm] 14 mg TD DAILY #30 patch.td24 Albuterol Sulfate [Proair Respiclick] 90 mcg IH QID PRN #30 aer.pow.ba PRN Reason: Dyspnea Budesonide/Formoterol 160/4.5 [Symbicort 160/4.5] 2 puff IH BIDR #1 bottle Home Medications: Albuterol Sulfate [Proair Respiclick] 90 mcg IH QID PRN #30 aer.pow.ba 05/24/19 [Rx] Budesonide/Formoterol 160/4.5 [Symbicort 160/4.5] 2 puff IH BIDR #1 bottle 05/24/19 [Rx] GuaiFENesin/Pseudophedrine [Mucinex D] 1 each PO BID PRN #14 tab.er.12h 05/24/19 [Rx] Nicotine Patch [Nicoderm] 14 mg TD DAILY #30 patch.td24 05/24/19 [Rx] PredniSONE [Deltasone] 40 mg PO DAILY #10 tablet 05/24/19 [Rx] Allergies/Adverse Reactions: Allergy/AdvReac Type Severity Reaction Status Date / Time No Known Allergies Allergy Verified 05/23/19 10:31 Date of admission: 05/22/19 08:40 Primary care physician: PCP NONE Consults: 05/24/19 07:44 Consult to Vascular Surgery [CONS] Routine Consulting Provider: Vascular Surgery Jo Reason for Consult: LLE PVD Call Completed: Yes Anticipated date of discharge: 05/24/19 - Constitutional Vitals: Temp Pulse Resp BP Pulse Ox 97.5 F L 85 16 115/67 99 05/24/19 07:11 05/24/19 07:11 05/24/19 10:40 05/24/19 07:11 05/24/19 10:40 General appearance: Present: A&O X 3 Exam: Constitutional: Vitals as noted. Conversant. Coughing Eyes : Sclera white, conjunctiva clear, no lid lag, PEARLA. ENT : Grossly normal hearing. Oropharyngeal exam unremarkable. Moist mucus membranes. No JVD, no cervical lymphadenopathy. no thyromegaly or mass. Respiratory : mild accessory muscle use. Diffuse wheezing, Lt >Rt Cardiovascular : RRR, +S1, +S2. no murmur, gallop, rubs. No chest wall tenderness GI/Abdominal : Soft, Non-tender, Non-distended, normal bowel sounds, soft, no peritoneal signs. no orgenomegaly or mass appreciated. no hernia. Musculoskeletal: no deformity noted. no edema or cyanosis. warm extremities, mild Lt calf tenderness on deep pressure, Difficult to palpate pulse. Neurological: AO X3, CN II-XII grossly intact, grossly normal motor and sensory exam. Skin: No skin rash, lesions or ulcers noted. Pych: Good insight and judgement. Intact memory. AOx3. - Patient Status Disposition: Home, Self-Care Condition: Fair Functional capacity at discharge: independent ambulation Overall status at discharge: patient is progressing back to baseline - Discharge Instructions Instructions: How to Stop Smoking (DC), Using Oxygen at Home (DC), Chronic Obstructive Pulmonary Disease (DC) Follow Up With: Babak Neumann MD [Partnered Physician] - 06/01/19 2:45 pm Chris Junior MD [Partnered Physician] - (Appointment has been requested.) - Diet and Activity Activity: increase activity as tolerated Diet: advance to your usual diet
[2019-05-24 12:14] VITALS: BP 116/66
--- NOTE | 2019-05-24 17:07 | Electrocardiograph Report ---
[address] [address] Test Date: 2019-05-23 Pat Name: Jose C Stubbs Department: 113 Room: 3B Gender: M Supervisor [employer]: : 1955 Requested By: Mathew Martin Order Number: [id number] Reading MD: Avinash Cramer Measurements Intervals [place] Rate: 98 P: 67 [place]: 176 QRS: 91 QRSD: 107 T: 42 QT: 364 QTc: 420 Interpretive Statements SINUS RHYTHM BORDERLINE RIGHT AXIS DEVIATION LATERAL ST DEPRESSION Electronically Signed On 05-24-2019 17:06:00 EDT by Avinash Cramer
--- NOTE | 2019-05-24 17:37 | Vascular/Endovasc Consult Note ---
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 The patient reports stable claudication at less than 100 feet. He denies rest pain, ulceration or gangrene. He has a diminished pulse exam. His ABIs are consistent with moderate disease. At this time the patient has no limb threatening ischemia. He will recover from his acute medical problems and then follow-up with vascular surgery as an outpatient. He may require angiography with possible intervention. He was advised to take aspirin 81 mg daily. (2) Essential hypertension Status: Chronic He was counseled regarding atherosclerotic risk factor reduction. (3) Mixed hyperlipidemia Status: Chronic (4) COPD exacerbation Status: Acute (5) Tobacco abuse Status: Chronic He was counseled regarding smoking cessation. - History of Present Illness Consult date: 05/24/19 Requesting physician: Mathew Martin Consult reason: Peripheral vascular disease Chief complaint: Bilateral lower extremity claudication History of present illness: Mr. Stubbs is a 63 year old male with history of coronary artery disease, hypertension, hyperlipidemia, COPD and tobacco abuse. The patient was admitted to [facility] with a COPD exacerbation. During his hospitalization he was noted to have decreased pulses. He did vascular lab studies was found have significant vascular disease. Vascular surgery was consulted for further evaluation. The patient reports disabling bilateral lower extremity claudication is hip styling casted approximately 100 feet. He denies rest pain, ulceration or gangrene. He does report nocturnal leg cramps intermittently. His symptoms have been present for several years and have been getting worse slowly. He denies any chest pain and reports chronic shortness of breath. Past Med Surg Social Fam HX - Past Medical History Medical history: arthritis, COPD, coronary artery disease, GERD, hyperlipidemia, hypertension, myocardial infarction Psychiatric history: no psych history - Past Surgical History Additional surgical history: Heart Cath, Cardiac Stent x1 - Social History Smoking Status: Current every day smoker Smokeless Tobacco Status: No Alcohol use: none Drug use: none - Family History Father Living Status: Mother Living Status: Hx Family Cardiac Disorders: Yes (mother) Hx Family Respiratory Disorders: Yes (most all) Hx Family Cancer: Yes (most, lung ca) Hx Family GI Disorders: No Hx Family Endocrine Disorder: Yes (grandmother) Hx Family Neuromuscular Disorders: No Hx Family Neurologic Disorders: Yes (aunt) Hx Family HEENT Disorders: No Hx Family Autoimmune Disorders: No Medications and Allergies Albuterol Sulfate [Proair Respiclick] 90 mcg IH QID PRN #30 aer.pow.ba 05/24/19 [Rx] Budesonide/Formoterol 160/4.5 [Symbicort 160/4.5] 2 puff IH BIDR #1 bottle 05/24/19 [Rx] GuaiFENesin/Pseudophedrine [Mucinex D] 1 each PO BID PRN #14 tab.er.12h 05/24/19 [Rx] Nicotine Patch [Nicoderm] 14 mg TD DAILY #30 patch.td24 05/24/19 [Rx] PredniSONE [Deltasone] 40 mg PO DAILY #10 tablet 05/24/19 [Rx] Allergy/AdvReac Type Severity Reaction Status Date / Time No Known Allergies Allergy Verified 05/23/19 10:31 All Systems Review: The remainder of the systems were reviewed and are negative - Constitutional Constitutional: no chills, no fever(s) - Cardiovascular Cardiovascular: dyspnea on exertion, no chest pain at rest, no lightheadedness - Vascular Vascular: no lower extremity ulcers, no lower extremity discoloration Exam General: Present: Conversant, No Apparent Distress HEENT: Present: Pupils equal Neck: Absent: JVD, Lymphadenopathy, Left Carotid bruit, Right Carotid bruit Cardiac: Present: Reg Rate and Rhythm, Normal S1 and S2 Lungs: Present: Normal Breath Sounds Neuro: Present: Alert and responsive, No focal deficits noted, Motor nerves grossly intact, Sensory nerves grossly intact Abdomen: Present: Soft, Non-tender. Absent: Masses Vascular: Present: Normal capillary refill, Pulse, absent (Left popliteal, dorsalis pedis and posterior tibial pulses absent, signals biphasic), Pulse, diminished (Bilateral femoral artery). Absent: Cyanosis, Edema Skin: Present: No rashes noted on visualized skin Consult Discharge Plan - Plan Instructions: How to Stop Smoking (DC), Using Oxygen at Home (DC), Chronic Obstructive Pulmonary Disease (DC) Referrals: Babak Neumann MD [Partnered Physician] - 06/01/19 2:45 pm Chris Junior MD [Partnered Physician] - (Appointment has been requested.) Prescriptions: PredniSONE [Deltasone] 40 mg PO DAILY #10 tablet GuaiFENesin/Pseudophedrine [Mucinex D] 1 each PO BID PRN #14 tab.er.12h PRN Reason: Cold Symptoms Nicotine Patch [Nicoderm] 14 mg TD DAILY #30 patch.td24 Albuterol Sulfate [Proair Respiclick] 90 mcg IH QID PRN #30 aer.pow.ba PRN Reason: Dyspnea Budesonide/Formoterol 160/4.5 [Symbicort 160/4.5] 2 puff IH BIDR #1 bottle
== END 2019-05-24 15:31 | disposition home or self-care (01) ==
LOC: EMEROOARM 06:01 → 3BNU 06:01
PROVIDERS: ADMIT Internal Medicine; ATTEND Internal Medicine

== ENCOUNTER 2021-06-24 09:17 | Inpatient (IN) ==
[2021-06-24] MEDS ORDERED: methylPREDNISolone 125 MG/2 ML VIAL IVP ONE (09:32)
[2021-06-24] MEDS ORDERED: Ipratropium/Albuterol Neb 3 ML IH ONE (09:32)
[2021-06-24 09:54] LABS: Basophils # 0.1 K/mcL (0.0-0.2); Basophils % 0.6 %; Eosinophils # 0.1 K/mcL (0.0-0.6); Eosinophils % 1.3 %; Hematocrit 43.7 % (37.5-50.1); Hemoglobin 14.7 g/dL (12.9-16.9); Immature Granulocytes % 0.4 % (0-4); Lymphocytes # 1.5 K/mcL (0.6-4.6); Lymphocytes % 14.5 %; Mean Corpuscular HGB Conc 33.6 g/dL (31.6-35.5); Mean Corpuscular Volume 89.2 fL (83.0-100.0); Mean Platelet Volume 10.1 fL (9.4-12.4); Monocytes # 0.7 K/mcL (0.0-1.3); Monocytes % 6.6 %; Neutrophils # 7.7 K/mcL (1.6-8.9); Platelet Count 303 K/mcL (140-400); Red Cell Distribution Width 12.9 % (11.5-14.5); Segmented Neutrophils % 76.6 %; White Blood Count 10.1 K/mcL (4.3-11.1)
[2021-06-24 10:14] LABS: BUN/Creatinine Ratio 10 (6-26); Blood Urea Nitrogen 10 mg/dL (8-23); Calcium 9.3 mg/dL (8.6-10.3); Carbon Dioxide 28 mEq/L (23-29); Chloride 103 mEq/L (98-107); Glucose 108 mg/dL (70-105); Osmolality,Calculated 290 (280-300); Potassium 3.8 mEq/L (3.5-5.1); Sodium 140 mEq/L (136-145); eGFR For African Americans > 60 (> 60); eGFR For Non-African Americans > 60 (> 60)
[2021-06-24 10:15] LABS: Troponin I < 0.03 ng/mL (< 0.04)
[2021-06-24] MEDS ORDERED: Naloxone 0.4 MG/ML INJ IVP PRN (11:20)
[2021-06-24] MEDS ORDERED: Ondansetron 4 MG/2 ML VIAL IVP PRN (11:20)
[2021-06-24] MEDS: Ipratropium/Albuterol Neb 3 ML IH SCH ×4 (11:37→23:58)
[2021-06-24] MEDS: *HR* HYDROcodone/Acet 5/325 mg TABLET PO PRN ×2 (13:08→20:16)
[2021-06-24] MEDS: GuaiFENesin/Dextromethorphan TABLET PO SCH ×2 (15:48→20:17)
[2021-06-24] MEDS: MethylPREDNISolone 40 MG/ML VIAL IVP SCH (17:45)
[2021-06-24] MEDS: *HR* Heparin 5,000 UNIT/ML VIAL SQ SCH ×2 (17:45→17:48)
[2021-06-24] MEDS: Doxycycline 100 MG in 0.9 % Sodium Chloride Mini Bag 100 ML IVPB SCH (17:46)
[2021-06-24] MEDS: Sucralfate 1 GM TABLET PO SCH ×2 (17:46→20:16)
[2021-06-24] MEDS ORDERED: MethylPREDNISolone 40 MG/ML VIAL IVP SCH (18:00)
[2021-06-24] MEDS ORDERED: Acetaminophen 325 MG TABLET PO PRN (18:02)
[2021-06-25] MEDS: MethylPREDNISolone 40 MG/ML VIAL IVP SCH ×4 (01:55→23:42)
[2021-06-25 04:13] LABS: Basophils % 0.1 %; Hematocrit 38.5 % (37.5-50.1); Hemoglobin 12.9 g/dL (12.9-16.9); Immature Granulocytes % 0.5 % (0-4); Lymphocytes # 0.8 K/mcL (0.6-4.6); Lymphocytes % 5.8 %; Mean Corpuscular HGB Conc 33.5 g/dL (31.6-35.5); Mean Corpuscular Hemoglobin 29.9 pg (28.0-33.3); Mean Corpuscular Volume 89.1 fL (83.0-100.0); Mean Platelet Volume 10.1 fL (9.4-12.4); Monocytes # 0.3 K/mcL (0.0-1.3); Monocytes % 2.3 %; Neutrophils # 12.2 K/mcL (1.6-8.9); Platelet Count 287 K/mcL (140-400); Red Blood Count 4.32 M/mcL (4.19-5.50); Red Cell Distribution Width 12.8 % (11.5-14.5); Segmented Neutrophils % 91.3 %; White Blood Count 13.4 K/mcL (4.3-11.1)
[2021-06-25 04:18] LABS: INR 1.1; Prothrombin Time 12.5 Seconds (9.4-12.1)
[2021-06-25 04:21] LABS: Activated Partial Thrombo Time 30.8 Seconds (26.0-36.0)
[2021-06-25 04:30] LABS: BUN/Creatinine Ratio 17 (6-26); Blood Urea Nitrogen 22 mg/dL (8-23); Calcium 9.3 mg/dL (8.6-10.3); Carbon Dioxide 26 mEq/L (23-29); Chloride 99 mEq/L (98-107); Glucose 133 mg/dL (70-105); Magnesium 1.8 mg/dL (1.6-2.6); Osmolality,Calculated 287 (280-300); Phosphorous 3.2 mg/dL (2.7-4.5); Potassium 3.6 mEq/L (3.5-5.1); Sodium 136 mEq/L (136-145); eGFR For African Americans > 60 (> 60); eGFR For Non-African Americans 57 (> 60)
[2021-06-25] MEDS: Ipratropium/Albuterol Neb 3 ML IH SCH ×3 (04:35→11:19)
[2021-06-25] MEDS: Doxycycline 100 MG in 0.9 % Sodium Chloride Mini Bag 100 ML IVPB SCH (06:24)
[2021-06-25] MEDS: *HR* Heparin 5,000 UNIT/ML VIAL SQ SCH ×2 (06:25→16:53)
[2021-06-25] MEDS: *HR* HYDROcodone/Acet 5/325 mg TABLET PO PRN (06:29)
[2021-06-25] MEDS: Aspirin Enteric Coated 81 MG Tablet PO SCH (09:07)
[2021-06-25] MEDS: GuaiFENesin/Dextromethorphan TABLET PO SCH ×2 (09:08→20:38)
[2021-06-25] MEDS: Sucralfate 1 GM TABLET PO SCH ×4 (09:08→20:38)
[2021-06-25] MEDS: lisinopriL 10 MG TABLET PO SCH (09:08)
[2021-06-25] MEDS: Levalbuterol Neb 1.25 MG/3 ML IH SCH ×3 (12:10→21:41)
[2021-06-25 12:36] LABS: Adenovirus Not Detected (Not Detect); Bordetella Pertussis Not Detected (Not Detect); Chlamydophila pneumoniae Not Detected (Not Detect); Coronavirus 229E Not Detected (Not Detect); Coronavirus HKU1 Not Detected (Not Detect); Coronavirus NL63 Not Detected (Not Detect); Coronavirus OC43 Not Detected (Not Detect); Human Metapneumovirus Not Detected (Not Detect); Human Rhinovirus/Enterovirus DETECTED (Not Detect); Influenza A Subtype 2009 H1 Not Detected (Not Detect); Influenza B Not Detected (Not Detect); Mycoplasma pneumoniae Not Detected (Not Detect); Parainfluenza Virus 1 Not Detected (Not Detect); Parainfluenza Virus 2 Not Detected (Not Detect); Parainfluenza Virus 3 Not Detected (Not Detect); Parainfluenza Virus 4 Not Detected (Not Detect); Respiratory Syncytial Virus Not Detected (Not Detect); SARS-CoV-2 Not Detected (Not Detect)
[2021-06-25] MEDS: Ampicillin 1,000 MG in 0.9 % Sodium Chloride Mini Bag 100 ML IVPB SCH ×3 (13:07→23:42)
[2021-06-26] MEDS: *HR* HYDROcodone/Acet 5/325 mg TABLET PO PRN (00:12)
[2021-06-26] MEDS: *HR* Heparin 5,000 UNIT/ML VIAL SQ SCH ×2 (03:34→15:33)
[2021-06-26] MEDS: Levalbuterol Neb 1.25 MG/3 ML IH SCH ×4 (03:38→22:43)
[2021-06-26] MEDS: Ampicillin 1,000 MG in 0.9 % Sodium Chloride Mini Bag 100 ML IVPB SCH ×4 (04:11→23:59)
[2021-06-26] MEDS: MethylPREDNISolone 40 MG/ML VIAL IVP SCH ×2 (08:20→15:26)
[2021-06-26] MEDS: GuaiFENesin/Dextromethorphan TABLET PO SCH ×2 (08:20→20:17)
[2021-06-26] MEDS: Sucralfate 1 GM TABLET PO SCH ×4 (08:20→20:17)
[2021-06-26] MEDS: Aspirin Enteric Coated 81 MG Tablet PO SCH (08:20)
[2021-06-26] MEDS: lisinopriL 10 MG TABLET PO SCH (08:20)
[2021-06-26 09:23] LABS: BUN/Creatinine Ratio 27 (6-26); Blood Urea Nitrogen 29 mg/dL (8-23); Calcium 9.3 mg/dL (8.6-10.3); Carbon Dioxide 25 mEq/L (23-29); Chloride 103 mEq/L (98-107); Glucose 117 mg/dL (70-105); Magnesium 2.1 mg/dL (1.6-2.6); Osmolality,Calculated 289 (280-300); Potassium 4.1 mEq/L (3.5-5.1); Sodium 136 mEq/L (136-145); eGFR For African Americans > 60 (> 60); eGFR For Non-African Americans > 60 (> 60)
[2021-06-26 09:26] LABS: Mean Platelet Volume 10.4 fL (9.4-12.4)
[2021-06-26 09:27] LABS: Hematocrit 37.4 % (37.5-50.1); Hemoglobin 12.5 g/dL (12.9-16.9); Mean Corpuscular HGB Conc 33.4 g/dL (31.6-35.5); Mean Corpuscular Hemoglobin 30.3 pg (28.0-33.3); Mean Corpuscular Volume 90.8 fL (83.0-100.0); Platelet Count 320 K/mcL (140-400); Red Blood Count 4.12 M/mcL (4.19-5.50); Red Cell Distribution Width 13.2 % (11.5-14.5)
[2021-06-26] MEDS ORDERED: methylPREDNISolone 125 MG/2 ML VIAL IVP ONE (09:49)
[2021-06-26] MEDS: Budesonide/Formoterol 160/4.5 1 PUFF INH IH SCH ×2 (10:01→22:44)
[2021-06-26 10:16] LABS: Lymphocytes # 1.5 K/mcL (0.6-4.6); Monocytes # 1.5 K/mcL (0.0-1.3)
[2021-06-26 10:17] LABS: Platelet Estimate Normal (Normal)
[2021-06-26] MEDS: Chlorhexidine Rinse 15 ML MOUTHWASH MM SCH ×2 (11:35→20:17)
[2021-06-26] MEDS: Nicotine 21 MG PATCH.TD24 TD SCH (15:25)
[2021-06-26] MEDS: Ibuprofen 800 MG TABLET PO PRN (20:31)
[2021-06-26] MEDS: Ipratropium 1 PUFF INHALER IH SCH ×2 (22:44→22:50)
[2021-06-27] MEDS: MethylPREDNISolone 40 MG/ML VIAL IVP SCH ×4 (00:05→23:28)
[2021-06-27] MEDS: Levalbuterol Neb 1.25 MG/3 ML IH SCH ×4 (03:55→23:37)
[2021-06-27] MEDS: Ipratropium 1 PUFF INHALER IH SCH ×6 (03:58→23:37)
[2021-06-27 05:32] LABS: Basophils # 0.1 K/mcL (0.0-0.2); Basophils % 0.3 %; Hemoglobin 12.2 g/dL (12.9-16.9); Immature Granulocytes % 1.6 % (0-4); Lymphocytes # 0.8 K/mcL (0.6-4.6); Lymphocytes % 3.6 %; Mean Corpuscular HGB Conc 32.1 g/dL (31.6-35.5); Mean Corpuscular Hemoglobin 30.2 pg (28.0-33.3); Mean Corpuscular Volume 94.1 fL (83.0-100.0); Mean Platelet Volume 10.4 fL (9.4-12.4); Monocytes # 0.7 K/mcL (0.0-1.3); Monocytes % 3.1 %; Neutrophils # 19.9 K/mcL (1.6-8.9); Platelet Count 293 K/mcL (140-400); Red Blood Count 4.04 M/mcL (4.19-5.50); Red Cell Distribution Width 13.5 % (11.5-14.5); Segmented Neutrophils % 91.4 %; White Blood Count 21.7 K/mcL (4.3-11.1)
[2021-06-27 05:51] LABS: Alanine Aminotransferase 19 Units/L (7-52); Albumin 3.8 g/dL (3.5-5.7); Albumin/Globulin Ratio 1.6 (1.1-2.2); Alkaline Phosphatase 47 Units/L (34-104); Aspartate Amino Transferase 23 Units/L (13-39); BUN/Creatinine Ratio 37 (6-26); Bilirubin,Total 0.2 mg/dL (0.3-1.0); Blood Urea Nitrogen 38 mg/dL (8-23); Calcium 8.9 mg/dL (8.6-10.3); Carbon Dioxide 26 mEq/L (23-29); Chloride 106 mEq/L (98-107); Globulin 2.4 g/dL (2.4-3.5); Glucose 119 mg/dL (70-105); Magnesium 2.1 mg/dL (1.6-2.6); Osmolality,Calculated 298 (280-300); Phosphorous 2.2 mg/dL (2.7-4.5); Potassium 4.3 mEq/L (3.5-5.1); Sodium 139 mEq/L (136-145); Total Protein 6.2 g/dL (6.4-8.9); eGFR For African Americans > 60 (> 60); eGFR For Non-African Americans > 60 (> 60)
[2021-06-27 05:53] LABS: % Iron Saturation 40 % (20-55); Iron 104 mcg/dL (65-175); Transferrin 186 mg/dL (203-362)
[2021-06-27] MEDS: Ampicillin 1,000 MG in 0.9 % Sodium Chloride Mini Bag 100 ML IVPB SCH (06:00)
[2021-06-27] MEDS: *HR* Heparin 5,000 UNIT/ML VIAL SQ SCH ×2 (06:00→17:04)
[2021-06-27 06:08] LABS: Ferritin 61 ng/mL (20-250)
[2021-06-27 06:12] LABS: Folate 5.5 ng/mL (3.0-16.0)
[2021-06-27] MEDS: Budesonide/Formoterol 160/4.5 1 PUFF INH IH SCH ×2 (07:15→20:05)
[2021-06-27] MEDS: Chlorhexidine Rinse 15 ML MOUTHWASH MM SCH ×2 (09:28→20:41)
[2021-06-27] MEDS: lisinopriL 10 MG TABLET PO SCH (09:28)
[2021-06-27] MEDS: GuaiFENesin/Dextromethorphan TABLET PO SCH ×2 (09:28→20:41)
[2021-06-27] MEDS: Aspirin Enteric Coated 81 MG Tablet PO SCH (09:28)
[2021-06-27] MEDS: Sucralfate 1 GM TABLET PO SCH ×4 (09:28→20:41)
[2021-06-27] MEDS: Nicotine 21 MG PATCH.TD24 TD SCH (09:29)
[2021-06-27] MEDS: cefTRIAXone 1,000 MG in Water for inj. (sterile) 10 ML IVP SCH (10:04)
[2021-06-27] MEDS: Azithromycin 500 MG in 0.9 % Sodium Chloride 250 ML IVPB SCH (10:05)
[2021-06-27] MEDS: MetroNIDAZOLE 500 MG/100 ML 500 MG/100 ML BAG IVPB SCH ×2 (17:05→23:29)
[2021-06-27] MEDS: Ibuprofen 800 MG TABLET PO PRN (20:41)
[2021-06-28 02:32] VITALS: PULSE 89
[2021-06-28 02:39] LABS: Basophils # 0.1 K/mcL (0.0-0.2); Basophils % 0.3 %; Hematocrit 33.1 % (37.5-50.1); Immature Granulocytes % 4.1 % (0-4); Lymphocytes # 0.8 K/mcL (0.6-4.6); Lymphocytes % 4.8 %; Mean Corpuscular HGB Conc 33.2 g/dL (31.6-35.5); Mean Corpuscular Hemoglobin 30.1 pg (28.0-33.3); Mean Corpuscular Volume 90.7 fL (83.0-100.0); Mean Platelet Volume 10.1 fL (9.4-12.4); Monocytes # 0.7 K/mcL (0.0-1.3); Monocytes % 3.9 %; Neutrophils # 15.1 K/mcL (1.6-8.9); Platelet Count 298 K/mcL (140-400); Red Blood Count 3.65 M/mcL (4.19-5.50); Red Cell Distribution Width 13.3 % (11.5-14.5); Segmented Neutrophils % 86.9 %; White Blood Count 17.4 K/mcL (4.3-11.1)
[2021-06-28 03:25] LABS: Alanine Aminotransferase 32 Units/L (7-52); Albumin 3.4 g/dL (3.5-5.7); Albumin/Globulin Ratio 1.5 (1.1-2.2); Alkaline Phosphatase 43 Units/L (34-104); Aspartate Amino Transferase 24 Units/L (13-39); BUN/Creatinine Ratio 35 (6-26); Bilirubin,Total 0.2 mg/dL (0.3-1.0); Blood Urea Nitrogen 33 mg/dL (8-23); Calcium 8.3 mg/dL (8.6-10.3); Carbon Dioxide 27 mEq/L (23-29); Chloride 107 mEq/L (98-107); Globulin 2.2 g/dL (2.4-3.5); Glucose 126 mg/dL (70-105); Osmolality,Calculated 295 (280-300); Phosphorous 2.6 mg/dL (2.7-4.5); Potassium 4.5 mEq/L (3.5-5.1); Sodium 138 mEq/L (136-145); Total Protein 5.6 g/dL (6.4-8.9); eGFR For African Americans > 60 (> 60); eGFR For Non-African Americans > 60 (> 60)
[2021-06-28] MEDS: Levalbuterol Neb 1.25 MG/3 ML IH SCH ×3 (04:15→16:16)
[2021-06-28] MEDS: Ipratropium Neb 0.5 MG NEBULIZER IH SCH ×3 (04:16→16:16)
[2021-06-28] MEDS: *HR* Heparin 5,000 UNIT/ML VIAL SQ SCH (04:56)
[2021-06-28] MEDS: Chlorhexidine Rinse 15 ML MOUTHWASH MM SCH (08:01)
[2021-06-28] MEDS: MethylPREDNISolone 40 MG/ML VIAL IVP SCH (08:02)
[2021-06-28] MEDS: cefTRIAXone 1,000 MG in Water for inj. (sterile) 10 ML IVP SCH (08:02)
[2021-06-28] MEDS: Nicotine 21 MG PATCH.TD24 TD SCH (08:04)
[2021-06-28] MEDS: GuaiFENesin/Dextromethorphan TABLET PO SCH (08:04)
[2021-06-28] MEDS: Aspirin Enteric Coated 81 MG Tablet PO SCH (08:04)
[2021-06-28] MEDS: lisinopriL 10 MG TABLET PO SCH (08:04)
[2021-06-28] MEDS: Sucralfate 1 GM TABLET PO SCH ×2 (08:04→11:49)
[2021-06-28] MEDS: MetroNIDAZOLE 500 MG/100 ML 500 MG/100 ML BAG IVPB SCH (08:17)
[2021-06-28] MEDS: Azithromycin 500 MG in 0.9 % Sodium Chloride 250 ML IVPB SCH (09:28)
[2021-06-28] MEDS: Budesonide/Formoterol 160/4.5 1 PUFF INH IH SCH (10:07)
[2021-06-28 10:34] VITALS: BP 118/78; TEMP 97.8
[2021-06-28 17:25] VITALS: O2SAT 92
== END 2021-06-28 19:36 | disposition home or self-care (01) | DRG 190 ==
LOC: 3BNU 09:17 → EMEROOARM 09:17 → SUATTDRO 11:27 → 3BNU 12:29 → SUATTDRO 06-26 17:18
PROVIDERS: ADMIT Internal Medicine; ATTEND Registered Nurse

== ENCOUNTER 2021-12-12 06:21 | Inpatient (IN) ==
[~2021-12-12 06:21] MED LIST: Vancomycin 1,000 MG, Sodium Chloride IRRigation 1,000 ML IR ONE
[2021-12-12] MEDS ORDERED: CeFAZolin Syr 2,000MG/20 ML 2,000 MG/20 ML SYRINGE IVPB ONE (06:38)
[2021-12-12] MEDS ORDERED: Ringers Solution, Lactated 1,000 ML IVC SCH (06:45)
[2021-12-12] MEDS ORDERED: *HR* HYDROmorphone (PF) 1 MG/ML SYRINGE IVP PRN (07:13)
[2021-12-12] MEDS ORDERED: *HR* Labetalol 20 MG/4 ML SYRINGE IVP PRN ×2 (07:13→14:25)
[2021-12-12] MEDS ORDERED: Pregabalin 75 MG CAPSULE PO ONE (07:13)
[2021-12-12] MEDS ORDERED: *HR* Promethazine 25 MG/ML VIAL IVPB PRN (07:13)
[2021-12-12] MEDS ORDERED: *HR* OxyCODONE Immed Rel 5 MG TABLET PO PRN (07:13)
[2021-12-12] MEDS ORDERED: Acetaminophen IV 1,000 MG/100 ML BAG IVPB ONE (07:13)
[2021-12-12] MEDS ORDERED: Famotidine 20 MG/2 ML VIAL IVP ONE (07:13)
[2021-12-12] MEDS ORDERED: *HR* HYDROmorphone 2 MG TABLET PO PRN (07:13)
[2021-12-12] MEDS ORDERED: Ipratropium/Albuterol Neb 3 ML IH ONE (07:28)
[2021-12-12] MEDS ORDERED: *HR* Propofol 200 MG/20 ML VIAL IVP ONE (07:50)
[2021-12-12] MEDS ORDERED: Lidocaine HCL 4 ML Topical Solution (Laryng-O-Jet Kit Sterile Pak) TP ONE (07:54)
[2021-12-12] MEDS ORDERED: *HR* Rocuronium Bromide 50 MG/5 ML VIAL ONE (08:01)
[2021-12-12] MEDS ORDERED: Ondansetron 4 MG/2 ML VIAL ONE (08:01)
[2021-12-12] MEDS ORDERED: Lidocaine -MPF 2% 5 ML VIAL ONE (08:01)
[2021-12-12] MEDS ORDERED: Heparin 1,000 UNITS/500 mL 500 ML ONE ×2 (08:42→15:05)
[2021-12-12] MEDS ORDERED: *HR* Vasopressin 20 UNIT/ML VIAL ONE (09:12)
[2021-12-12] MEDS ORDERED: Albumin Human 5% 0 GM/0 ML IV.SOLN ONE (09:13)
[2021-12-12] MEDS ORDERED: *HR* FentaNYL (PF) 100 MCG/2 ML VIAL ONE (09:14)
[2021-12-12] MEDS ORDERED: *HR* Phenylephrine 10 MG/ML VIAL ONE (09:14)
[2021-12-12] MEDS ORDERED: *HR* Heparin 5,000 UNIT/ML VIAL ONE (09:16)
[2021-12-12] MEDS ORDERED: EPHEDrine 50 MG/ML VIAL ONE (09:48)
[2021-12-12] MEDS ORDERED: *HR* Magnesium Sulfate 1 GM/2 ML VIAL ONE (10:55)
[2021-12-12] MEDS ORDERED: *HR* HYDROMORPHONE 2 MG/ML VIAL ONE (11:31)
[2021-12-12] MEDS ORDERED: Naloxone 0.4 MG/ML INJ IVP PRN (14:25)
[2021-12-12] MEDS ORDERED: Acetaminophen 325 MG TABLET PO PRN (14:25)
[2021-12-12] MEDS ORDERED: 0.9 % Sodium Chloride 1,000 ML IVC SCH (14:25)
[2021-12-12] MEDS ORDERED: Ondansetron 4 MG/2 ML VIAL IVP PRN (14:25)
[2021-12-12] MEDS ORDERED: *HR* HYDROcodone/Acet 5/325 mg TABLET PO PRN (14:25)
[2021-12-12] MEDS ORDERED: Bupivacaine-MPF 0.25% 10 ML VIAL ONE (15:05)
[2021-12-12] MEDS: *HR* Metoprolol 5 MG/5 ML VIAL IVP SCH ×2 (17:28→23:57)
[2021-12-12] MEDS: Sucralfate 1 GM TABLET PO SCH ×2 (17:28→22:19)
[2021-12-12] MEDS: CeFAZolin 2 GM/120 ML BAG IVPB SCH (19:59)
[2021-12-12] MEDS: *HR* OxyCODONE Immed Rel 5 MG TABLET PO PRN (20:10)
[2021-12-13] MEDS: CeFAZolin 2 GM/120 ML BAG IVPB SCH (04:21)
[2021-12-13] MEDS: *HR* OxyCODONE Immed Rel 5 MG TABLET PO PRN (04:39)
[2021-12-13] MEDS: *HR* Heparin 5,000 UNIT/ML VIAL SQ SCH ×2 (04:39→04:42)
[2021-12-13] MEDS: *HR* Metoprolol 5 MG/5 ML VIAL IVP SCH ×2 (04:39→11:57)
[2021-12-13 04:57] VITALS: TEMP 98.2
[2021-12-13 05:32] LABS: Basophils % 0.2 %; Hematocrit 37.9 % (37.5-50.1); Immature Granulocytes % 0.5 % (0-4); Lymphocytes # 0.9 K/mcL (0.6-4.6); Lymphocytes % 7.5 %; Mean Corpuscular HGB Conc 31.4 g/dL (31.6-35.5); Mean Corpuscular Hemoglobin 29.4 pg (28.0-33.3); Mean Corpuscular Volume 93.6 fL (83.0-100.0); Mean Platelet Volume 9.9 fL (9.4-12.4); Monocytes % 7.8 %; Neutrophils # 10.4 K/mcL (1.6-8.9); Platelet Count 260 K/mcL (140-400); Red Blood Count 4.05 M/mcL (4.19-5.50); Red Cell Distribution Width 13.2 % (11.5-14.5); White Blood Count 12.3 K/mcL (4.3-11.1)
[2021-12-13 05:33] LABS: Hemoglobin 11.9 g/dL (12.9-16.9)
[2021-12-13 05:43] LABS: BUN/Creatinine Ratio 9 (6-26); Blood Urea Nitrogen 11 mg/dL (8-23); Calcium 8.3 mg/dL (8.6-10.3); Carbon Dioxide 27 mEq/L (23-29); Chloride 105 mEq/L (98-107); Glucose 100 mg/dL (70-105); Osmolality,Calculated 285 (280-300); Potassium 4.2 mEq/L (3.5-5.1); Sodium 138 mEq/L (136-145); eGFR For African Americans > 60 (> 60); eGFR For Non-African Americans > 60 (> 60)
[2021-12-13] MEDS ORDERED: *HR* Heparin 5,000 UNIT/ML VIAL SQ SCH (06:00)
[2021-12-13] MEDS: Sucralfate 1 GM TABLET PO SCH ×2 (07:59→11:57)
[2021-12-13] MEDS ORDERED: lisinopriL 10 MG TABLET PO SCH (09:00)
[2021-12-13] MEDS ORDERED: Aspirin Enteric Coated 81 MG Tablet PO SCH (09:00)
[2021-12-13 09:34] VITALS: O2SAT 95
[2021-12-13 12:08] VITALS: BP 120/70; PULSE 97
== END 2021-12-13 13:15 | disposition home or self-care (01) | DRG 254 ==
LOC: SAMDAY 06:21 → 2NNU 13:51
PROVIDERS: ADMIT Surgery; ATTEND Surgery